=== PATIENT | female | born 1975 | race Caucasian/White ===

== ENCOUNTER 2020-04-19 16:59 | Emergency (ER) | payer OTHER, SELFPAY ==
--- NOTE | 2020-04-19 17:05 | ED.URI ---
HPI - URI/Sore Throat General Chief Complaint: Upper Respiratory Infection Stated Complaint: cough/sinus congestion/shortness of breath Time Seen by Provider: 04/19/20 17:13 Source: patient and RN notes reviewed Mode of arrival: ambulatory Limitations: no limitations History of Present Illness HPI Narrative: 45 year old female who presents to express care with complaints of cough with post nasal drainage some dyspnea with exertion for the past 5 days. Patient states she had nasal drainage which started on 04/08/2020 and on 04/11/2020 had negative COVID test was feeling better last week till stated complaints which started the past 5 days. Patient states that cough is at times barky and notices it a lot when she lays down, denies any sore throat, fevers, ear pain or acute dyspnea episodes. Patient has history of asthma and is out of her Duo Nebs. Patient states that she is presently finishing a RX of Keflex for an UTI with 1 1/2 days left on RX. MD elicited complaint: cough and nasal congestion Pertinent past history: asthma, seasonal allergies and immunosuppression (on Skyrizi for psoriasis) Onset (ago): day(s) (5) Consistency: constant Description of mucous: yellow Able to tolerate fluids by mouth: Yes Exacerbating factors: exertion and deep breaths Relieving factors: rest and other (inhalers ) Context: other (nasal drainage , asthma, seasonal allergies) Associated symptoms: rhinorrhea, nasal congestion, cough and shortness of breath Treatments prior to arrival: antibiotics and other (inhalers) Related Data Home Medications Medication Instructions Recorded Confirmed albuterol sulfate [ProAir HFA] 2 puff INHALATION QID PRN 07/07/19 04/19/20 ascorbic acid (vitamin C) 1 g PO DAILY 07/07/19 04/19/20 budesonide-formoterol [Symbicort] 2 puff INHALATION Q12H 07/07/19 04/19/20 ipratropium-albuterol 3 ml INHALATION Q4H PRN 07/07/19 04/19/20 montelukast [Singulair] 10 mg PO DAILY 07/07/19 04/19/20 omeprazole 20 mg PO DAILY 07/07/19 04/19/20 cephalexin 500 mg PO Q12H 04/19/20 04/19/20 cetirizine [Zyrtec] 10 mg PO DAILY 04/19/20 04/19/20 hydrocodone-acetaminophen 1 tablet PO Q4H PRN 04/19/20 04/19/20 risankizumab-rzaa [Skyrizi] 0 mg SUBCUT PER PKG DIR 04/19/20 04/19/20 ropinirole 0.5 mg PO BID 04/19/20 04/19/20 Allergies Allergy/AdvReac Type Severity Reaction Status Date / Time No Known Allergies Allergy Verified 04/19/20 17:19 Review of Systems Review of Systems: Narrative: CONSTITUTIONAL: Denies fever, chills, or sweats. EYES: Denies visual changes, redness, or discharge. ENT: positive rhinorrhea, congestion, no sore throat, or otalgia. CARDIOVASCULAR: Denies chest pain, palpitations, or edema. RESPIRATORY: positive for cough or dyspnea with exertion. GASTROINTESTINAL: Denies abdominal pain, nausea, vomiting, or diarrhea. GENITOURINARY: Denies dysuria or hematuria. SKIN: Denies rash or itching. MUSCULOSKELETAL: Denies back pain, joint pain, or myalgia. NEUROLOGIC: Denies headache, numbness, or weakness. PSYCHIATRIC: Denies anxiety or depression. 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 There is no relevant family history pertinent to the presenting complaint Exam N
[2020-04-19 17:06] VITALS: BP 135/87; PULSE 90; RESP 16; TEMP 36.7; O2SAT 98
== END 2020-04-19 17:42 | disposition home or self-care (01) ==
PROVIDERS: Emergency Provider Registered Nurse
DX: J45.40 Moderate persistent asthma, uncomplicated (principal); Z87.891 Personal history of nicotine dependence; K21.9 Gastro-esophageal reflux disease without esophagitis
CPT/HCPCS: 99213; G0463

== ENCOUNTER 2021-08-07 11:19 | Emergency (ER) | payer OTHER, SELFPAY ==
--- NOTE | ~2021-08-07 | XR_ITS ---
EXAMINATION: XR chest 2V EXAM DATE: 08/07/2021 11:44 INDICATION: Post Cough. (+)PCR 07/31/2021. . TECHNIQUE: Frontal and lateral projections of the chest obtained and reviewed. There is no prior pino dy for comparison. FINDINGS: The lungs are clear. There are no pleural effusions. The cardiomediastinal silhouette is within normal limits. There is no pneumothorax suspected. The bones and soft tissues are unremarkab le. IMPRESSION: No acute cardiopulmonary findings. Reviewed, dictated and finalized at location B. TEACHER
[2021-08-07 11:28] VITALS: BP 148/67; PULSE 114; RESP 16; TEMP 36.9; O2SAT 99
--- NOTE | 2021-08-07 11:35 | ED.URI ---
HPI - URI/Sore Throat General Chief Complaint: Upper Respiratory Infection Stated Complaint: chest congestion sore throat Time Seen by Provider: 08/07/21 11:35 Source: patient and family History of Present Illness HPI Narrative: positive covid test 07/31/21. Patient presents with continued cough and congestion. 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 non productive cough. Patient has ran out of her inhalers. No shortness of breath and no chest pain. MD elicited complaint: cough and nasal congestion Related Data Home Medications Medication Instructions Recorded Confirmed albuterol sulfate [ProAir HFA] 2 puff INHALATION QID PRN 07/07/19 08/07/21 ascorbic acid (vitamin C) 1 g PO DAILY 07/07/19 08/07/21 budesonide-formoterol [Symbicort] 2 puff INHALATION Q12H 07/07/19 08/07/21 ipratropium-albuterol 3 ml INHALATION Q4H PRN 07/07/19 08/07/21 montelukast [Singulair] 10 mg PO DAILY 07/07/19 08/07/21 omeprazole 20 mg PO DAILY 07/07/19 08/07/21 ropinirole 0.5 mg PO BID 04/19/20 04/19/20 Allergies Allergy/AdvReac Type Severity Reaction Status Date / Time No Known Allergies Allergy Verified 04/19/20 17:19 Review of Systems Review of Systems: All systems reviewed & are unremarkable except as noted in HPI and below Constitutional: Constitutional: Reports as per HPI Eyes: Eyes: Reports as per HPI Cardiovascular: Cardiovascular: Reports as per HPI Respiratory: Respiratory: Reports as per HPI Gastrointestinal: Gastrointestinal: Reports as per HPI Comments: CONSTITUTIONAL: Denies fever, chills, or sweats. EYES: Denies visual changes, redness, or discharge. ENT: Denies rhinorrhea, congestion, sore throat, or otalgia. CARDIOVASCULAR: Denies chest pain, palpitations, or edema. RESPIRATORY: Denies cough or dyspnea. GASTROINTESTINAL: Denies abdominal pain, nausea, vomiting, or diarrhea. GENITOURINARY: Denies dysuria or hematuria. SKIN: Denies rash or itching. MUSCULOSKELETAL: Denies back pain, joint pain, or myalgia. NEUROLOGIC: Denies headache, numbness, or weakness. PSYCHIATRIC: Denies anxiety or depression. 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 There is no relevant family history pertinent to the presenting complaint Exam Const: Other: GENERAL: Well-appearing, well-nourished, and in no acute distress. HEAD: Normocephalic, atraumatic. EYES: PERRLA and EOMI. ENT: Nares clear, no rhinorrhea or epistaxis. Mucous membranes moist. NECK: Supple. CHEST:few crackles bases respiratory distress. HEART: Regular rate and rhythm. No murmur heard. Normal peripheral pulses. ABDOMEN: Soft, nontender, nondistended, normal active bowel sounds. EXTREMITIES: Normal range of motion. No edema. SKIN: Warm, dry, no rash. NEURO: No focal deficits. Alert and oriented x3. Shivam Coma Scale Eye Opening: Spontaneous 4 Shivam Coma Scale Motor: Obeys Commands 6 Shivam Coma Scale Verbal: Oriented 5 Brooks Coma Scale Total 15 Course Course Level of Care: Express Care Visit Vital Signs Vital signs: Vital Signs Temperature 36.9 C 08/07/21 11:28 Pulse Rate 114 H 08/07/21 11:28 Respiratory Rate 16 08/07/21 11:28 Blood Pressure 148/67 H 08/07/21 11:28 Pulse Oximetry 99 08/07/21 11:28 Temperature 36.9
[2021-08-07 11:40] VITALS: BP 148/67; PULSE 114; RESP 16; TEMP 36.9; O2SAT 99
== END 2021-08-07 12:08 | disposition home or self-care (01) ==
PROVIDERS: Emergency Provider Nurse Practitioner Family
DX: U07.1 COVID-19 (principal); Z87.891 Personal history of nicotine dependence; J45.909 Unspecified asthma, uncomplicated; K21.9 Gastro-esophageal reflux disease without esophagitis
CPT/HCPCS: 71046; 99213; G0463

== ENCOUNTER 2023-02-14 15:15 | Emergency (ER) | payer OTHER, SELFPAY ==
[2023-02-14 15:26] VITALS: BP 123/69; PULSE 107; RESP 20; TEMP 36.5; O2SAT 99
--- NOTE | 2023-02-14 15:34 | ED.URI ---
HPI - URI/Sore Throat General Chief Complaint: Upper Respiratory Infection Stated Complaint: Cough; body ache Time Seen by Provider: 02/14/23 15:22 History of Present Illness HPI Narrative: Patient presents with a productive cough for the past 5 days. Patient denies any shortness of breath no chest pain patient states she does report a history of asthma and is using her inhalers as Related Data Home Medications Medication Instructions Recorded Confirmed ascorbic acid (vitamin C) 1,000 mg 1 g PO DAILY 07/07/19 08/07/21 tablet budesonide-formoterol HFA 160 2 puff inhalation Q12H 07/07/19 08/07/21 mcg-4.5 mcg/actuation aerosol inhaler (Symbicort) ipratropium 0.5 mg-albuterol 3 mg 3 ml inhalation Q4H PRN Dyspnea 07/07/19 08/07/21 (2.5 mg base)/3 mL nebulization soln montelukast 10 mg tablet 10 mg PO DAILY 07/07/19 08/07/21 (Singulair) omeprazole 20 mg capsule,delayed 20 mg PO DAILY 07/07/19 08/07/21 release ropinirole 0.5 mg tablet 0.5 mg PO BID 04/19/20 04/19/20 Allergies Allergy/AdvReac Type Severity Reaction Status Date / Time No Known Allergies Allergy Verified 04/19/20 17:19 Review of Systems Review of Systems: CONSTITUTIONAL: Denies fever, chills, or sweats. EYES: Denies visual changes, redness, or discharge. ENT: Denies rhinorrhea, congestion, sore throat, or otalgia. CARDIOVASCULAR: Denies chest pain, palpitations, or edema. RESPIRATORY: Denies cough or dyspnea. GASTROINTESTINAL: Denies abdominal pain, nausea, vomiting, or diarrhea. GENITOURINARY: Denies dysuria or hematuria. SKIN: Denies rash or itching. MUSCULOSKELETAL: Denies back pain, joint pain, or myalgia. NEUROLOGIC: Denies headache, numbness, or weakness. PSYCHIATRIC: Denies anxiety or depression. 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 There is no relevant family history pertinent to the presenting complaint Exam Narrative: The patient is a well-developed, well-nourished in no acute distress. SKIN: Skin is warm and dry without erythema, swelling or exudate. There is good turgor. No tenting. HEAD: Atraumatic. Normocephalic. No temporal or scalp tenderness. EYES: Moist and bright. Sclera and conjunctivae normal. No discharge. PERRLA. Extraocular motions intact. Gross visual acuity intact. EARS: Pinna is normal shape and contour. Clear external auditory canals. TM pearly hennessy with good cone of light, no erythema or suppuration. Bilateral cerumen noted no gross hearing deficit. NOSE: pink, moist mucosa with good air movement. Clear rhinorrhea without nasal flaring. Septum midline. Mouth: moist mucous membranes. THROAT; mild erythema noted to posterior oropharynx with moderate postnasal drainage. Without exudate or ulceration.. Uvula midline. Normal movement of soft palate. NECK: Supple and nontender with full range of motion without discomfort. No meningeal signs. LUNGS: Equal and bilateral breath sounds without wheezes, rales or rhonchi. Deep congested cough productive at times CHEST: The chest wall is without retractions or use of accessory muscles. HEART: Has a regular rate and rhythm without murmur, gallops, click or rub. ABDOMEN: Soft, nontender with positive active bowel sounds. No rebound tenderness. EXTREMITIES:
== END 2023-02-14 15:46 | disposition home or self-care (01) ==
PROVIDERS: Emergency Provider Nurse Practitioner Family
DX: J45.909 Unspecified asthma, uncomplicated (principal); Z87.891 Personal history of nicotine dependence; K21.9 Gastro-esophageal reflux disease without esophagitis; L40.9 Psoriasis, unspecified
CPT/HCPCS: 99213; G0463

== ENCOUNTER 2023-09-07 10:40 | Emergency (ER) | payer OTHER, SELFPAY ==
[2023-09-07 10:44] VITALS: BP 121/85; PULSE 84; RESP 20; TEMP 36.6; O2SAT 100
--- NOTE | 2023-09-07 11:19 | ED.EAR ---
HPI - Ear Problem General Chief complaint: Ear Stated complaint: ears Time Seen by Provider: 09/07/23 11:20 Source: patient, RN notes reviewed and old records reviewed Mode of arrival: ambulatory Limitations: no limitations History of Present Illness HPI Narrative: 48-year-old female who presents to [facility] with right ear for 4 days duration with some pain radiating down side of neck. Patient reports that ear pain is sharp,shooting and has worsened.Patient reports no known fevers, chills or sweats, states no sore throat, or no body aches. Patient reports that she has been taking Tylenol for her ear pain without relief. MD Complaint: ear pain Location: right ear Duration: constant Severity: moderate Discharge from ear: Reports no Treatment prior to arrival: other (Tylenol takes daily Zyrtec and Singulair) Related Data Home Medications Medication Instructions Recorded Confirmed apremilast 10 mg (4)-20 mg (4)-30 See Rx Instructions .Route .COMPLEX 09/07/23 09/07/23 mg (47) tablets in a dose pack (Otezla Starter) desoximetasone 0.25 % topical See Rx Instructions .Route .COMPLEX 09/07/23 09/07/23 ointment dextroamphetamine-amphetamine ER 15 mg PO DAILY 09/07/23 09/07/23 15 mg 24hr capsule,extend release fluocinonide 0.05 % topical See Rx Instructions .Route .COMPLEX 09/07/23 09/07/23 solution montelukast 10 mg tablet 10 mg PO DAILY 09/07/23 09/07/23 omeprazole 20 mg capsule,delayed 20 mg PO DAILY 09/07/23 09/07/23 release terbinafine HCl 250 mg tablet See Rx Instructions .Route .COMPLEX 09/07/23 09/07/23 timolol maleate 0.5 % eye drops See Rx Instructions .Route .COMPLEX 09/07/23 09/07/23 Allergies Allergy/AdvReac Type Severity Reaction Status Date / Time No Known Allergies Allergy Verified 09/07/23 10:53 Review of Systems Review of Systems: CONSTITUTIONAL: Denies malaise, chills, sweats, or fever. EYES: Denies visual changes, redness, or discharge. ENT: Reports rhinorrhea, congestion,no sinus pain, positive for right ear otalgia and no sore throat. CARDIOVASCULAR: Denies chest pain, palpitations, or edema. RESPIRATORY: Reports no cough.? Denies dyspnea. GASTROINTESTINAL: Denies abdominal pain, nausea, vomiting, diarrhea SKIN: Denies rash or itching. MUSCULOSKELETAL: Denies myalgia. NEUROLOGIC: Denies headache. 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 There is no relevant family history pertinent to the presenting complaint Exam Narrative: GENERAL: Well-appearing, well-nourished, and in no acute distress. HEAD: Normocephalic EYES: PERRLA, conjunctivae clear ENT: Nares clear, turbinates edematous and erythematous, clear discharge. Mucous membranes moist. Right TM red Left TM pearly an with dull light reflex ; no tragal tenderness. Oropharynx erythematous without lesions. Tonsils not enlarged and without exudate, no drooling, no hoarseness, no trismus, uvula midline.post nasal drainage NECK: Supple. No lymphadenopathy CHEST: Clear to auscultation, breath sounds equal. No wheezing, rhonchi, rales, or stridor. No respiratory distr
== END 2023-09-07 11:40 | disposition home or self-care (01) ==
PROVIDERS: Emergency Provider Registered Nurse
DX: H66.91 Otitis media, unspecified, right ear (principal); F90.9 Attention-deficit hyperactivity disorder, unspecified type; J45.909 Unspecified asthma, uncomplicated; K21.9 Gastro-esophageal reflux disease without esophagitis; L40.9 Psoriasis, unspecified; Z98.84 Bariatric surgery status
CPT/HCPCS: 99213; G0463

== ENCOUNTER 2025-05-21 16:00 | Emergency (ER) | payer OTHER, SELFPAY ==
--- NOTE | 2025-05-21 16:05 | ED.URI ---
HPI - URI/Sore Throat General Chief Complaint: Upper Respiratory Infection Stated Complaint: sinus issues Time Seen by Provider: 05/21/25 16:35 Source: patient, RN notes reviewed and old records reviewed Mode of arrival: ambulatory Limitations: no limitations History of Present Illness HPI Narrative: 50-year-old female presents to the [facility] with 1 week history of a productive cough. Has tried [id number] cold and flu medication. History of asthma. States that she has a history of bronchitis which it feels like. Denies any fevers, chest pain Related Data Home Medications ?Medication ?Instructions ?Recorded ?Confirmed ?Last Taken ?Type apremilast 10 mg (4)-20 mg (4)-30 See Rx Instructions .Route .COMPLEX 09/07/23 09/07/23 Unknown History mg (47) tablets in a dose pack (Otezla Starter) desoximetasone 0.25 % topical See Rx Instructions .Route .COMPLEX 09/07/23 09/07/23 Unknown History ointment dextroamphetamine-amphetamine ER 15 mg PO DAILY 09/07/23 09/07/23 Unknown History 15 mg 24hr capsule,extend release fluocinonide 0.05 % topical See Rx Instructions .Route .COMPLEX 09/07/23 09/07/23 Unknown History solution montelukast 10 mg tablet 10 mg PO DAILY 09/07/23 09/07/23 Unknown History omeprazole 20 mg capsule,delayed 20 mg PO DAILY 09/07/23 09/07/23 Unknown History release terbinafine HCl 250 mg tablet See Rx Instructions .Route .COMPLEX 09/07/23 09/07/23 Unknown History timolol maleate 0.5 % eye drops See Rx Instructions .Route .COMPLEX 09/07/23 09/07/23 Unknown History Allergies Allergy/AdvReac Type Severity Reaction Status Date / Time No Known Allergies Allergy Verified 05/21/25 16:19 Review of Systems Review of Systems: All systems reviewed & are unremarkable except as noted in HPI and below Constitutional: Constitutional: Reports no additional constitutional complaints ENT: Reports system reviewed and no additional complaints, except as documented Cardiovascular: Cardiovascular: Reports no additional cardiovascular complaints, Denies chest pain and Denies dyspnea Respiratory: Respiratory: Reports as per HPI, Denies chest congestion, Reports cough and Denies dyspnea Musculoskeletal: Musculoskeletal: Reports no additional musculoskeletal complaints Integumentary/Breasts: Skin/Breast: Reports system reviewed and no additional complaints, except as [facility]u [facility] Past Medical History Medical History (Updated 05/21/25 @ 16:46 by Celsa Hunter APRN) ADHD (attention deficit hyperactivity disorder) Seasonal allergies Psoriasis 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 There is no relevant family history pertinent to the patient complaint. Exam Const: General: cooperative, healthy appearing, comfortable, no acute distress, well developed, alert and well nourished Nutritional Appearance: well nourished Orientation/consciousness: patient oriented x3 Limitations: no limitations HENMT: Head: normal to inspection Ears: hearing grossly normal bilaterally, external ears normal, TM's normal bilaterally, EAC's normal, mastoids normal and no periauricular adenopathy Mouth: Yes Normal oral and palatal mucosa present, Yes lip normal, Yes tongue normal and Yes moist mucous membranes Throat: posterior oropharynx normal, uvula midline and no uvular edema Eyes: General: appearance normal, both eyes and all related structures Alignment and Position: alignment normal Neck: Neck: normal visual inspection, full ROM, no lymphadenopathy and no meningeal signs Chest: Chest palpation & inspection: normal inspection of the chest Resp: Effort & Inspection: normal respiratory effort and able to speak in complete sentences Auscultation: clear to auscultation bilaterally, no crackles, no rales, no rhonchi and no wheezes Cardio: Rate: regular rate Skin: General skin exam: normal color and no rashes or lesions noted Neuro: General: patient oriented x3, gait normal, moves all extremities and no meningeal signs Cognition (Neuro): normal cognition Speech: normal speech Gait exam (Neuro): Normal gait present Extrem: General: normal to inspection, full ROM, capillary refill normal and normal gait Psych: Appearance: grossly normal and well kempt Mental Status: mental status grossly normal Speech and movement: Normal speech and movement present and Clear speech present Affect: normal affect Attitude: cooperative Course Course Level of Care: Express Care Visit Vital Signs Vital signs: Vital Signs Temperature 98.3 F 05/21/25 16:06 Pulse Rate 96 05/21/25 16:06 Respiratory Rate 20 05/21/25 16:06 Blood Pressure 116/90 05/21/25 16:06 Pulse Oximetry 98 05/21/25 16:06 Oxygen Delivery Room Air 05/21/25 16:06 Temperature 98.3 F 05/21/25 16:06 Pulse Rate 96 05/21/25 16:06 Respiratory Rate 20 05/21/25 16:06 Blood Pressure 116/90 05/21/25 16:06 Pulse Oximetry 98 05/21/25 16:06 Oxygen Delivery Room Air 05/21/25 16:06 Reviewed MDM - URI/Sore Throat MDM Narrative Medical decision making narrative: patient sitting in exam room. Patient is nontoxic, vitals stable. Patient reports 1 week history of cough, history of asthma and bronchitis. States that she has not used her albuterol since yesterday. Denies any fevers. States that she does have enough nebulizer at home. No testing needed, will cover with steroids. Discharge instructions reviewed with patient, as well as provided in writing per nursing staff. The instructions also include specific and strict return/GO TO THE ER as well as f/u information. All questions have been answered, and the patient deny any further questions with discharge and discharge plan. Some parts of this dictation were generated by voice recognition software and may contain typographical and/or grammatical inaccuracies. Differential Diagnosis Differential diagnosis: Likely upper respiratory infection, otitis media, sinusitis, viral infection, bronchitis, influenza and pharyngitis Critical Care Time Critical Care Time Critical Care Time: No Discharge Plan Discharge Clinical Impression: Bronchitis, History of asthma Patient Disposition: Home Condition: Stable Instructions: Antibiotic Form, Acute Bronchitis (ED) Additional Instructions: please use your nebulizer machine 3 times a day for the next 3 days then as needed take Mucinex twice daily per package instructions take steroids as prescribed follow-up with primary care provider for new or worsening symptoms go directly to the emergency room Patient Language: Greenlandic Prescriptions: New prednisone 20 mg tablet See Rx Instructions .Route .COMPLEX Qty: 18 0RF Rx Instructions: Take 60 mg daily for 3 days, 40 mg daily for 3 days, 20 mg daily for 3 days No Action terbinafine HCl 250 mg tablet See Rx Instructions .ROUTE .COMPLEX Rx Instructions: as prescribed desoximetasone 0.25 % ointment See Rx Instructions .ROUTE .COMPLEX Rx Instructions: as prescribed omeprazole 20 mg capsule,delayed release(DR/EC) 20 mg PO DAILY montelukast 10 mg tablet 10 mg PO DAILY fluocinonide 0.05 % solution See Rx Instructions .ROUTE .COMPLEX Rx Instructions: as directed timolol maleate 0.5 % drops See Rx Instructions .ROUTE .COMPLEX Rx Instructions: as prescribed dextroamphetamine-amphetamine 15 mg capsule,extended release 24hr 15 mg PO DAILY Otezla Starter 10 mg (4)-20 mg (4)-30 mg (47) tablets,dose pack See Rx Instructions .ROUTE .COMPLEX Rx Instructions: as prescribed fluconazole 150 mg tablet 150 mg PO ONCE Qty: 2 0RF Rx Instructions: as a single dose may repeat in 72 hours X1 Follow-up/Referrals: UNKNOWN,DOCTOR [Primary Care Provider] Stand Alone Forms: Work/School Release IP Time of Disposition: 16:46
[2025-05-21 16:06] VITALS: BP 116/90; PULSE 96; RESP 20; TEMP 36.8; O2SAT 98
--- OUTSIDE RECORDS SUMMARY | 2025-05-21 16:06 | XMS_ITS | Encounter Summary ---
Author Organization [facility] Address [address] [place] [address] Care Team Providers Care Household Coordinator Name Role Phone Dilshad Muñoz MD Primary Care Provider [phone] Dilshad Muñoz MD Unavailable [phone] Dea Scott MD Primary Care Provider Reason for Visit * Reason Onset Date Comments MEDICATION REFILL 04/10/2022 Encounter Details Date Type Department Care Team (Late st Contact Info) Description 04/10/2022 Refill [facility] Family and Community Medicine [address] [place] [address], [place] [phone] Dilshad Muñoz MD [address] [place] [address] [place] [address] MEDICATION REFILL Social History Tobacco Use Types Packs/Day Years Used Date Smoking Tobacco: Former Cigarettes Smokeless Tobacco: Never Comments:QUIT 4yrs ago. Alcohol Use Standard Drinks/Week Comments Yes 1.7 (1 standard drink = 0.6 oz p ure alcohol) occassionally PHQ-2 Answer Date Recorded PHQ2 TOTAL SCORE 6 01/07/2021 Comments No Sex and Gender Information Value Date Recorded Sex Assigned at Female 09/16/2021 9:54 PM DENTAL LABORATORY MANAGER Legal Sex Female 5:10 PM CDT Gender Identity Female 09/16/2021 9:54 PM DENTAL LABORATORY MANAGER Sexual Orientation Straight 09/16/2021 9: 54 PM DENTAL LABORATORY MANAGER documented as of this encounter Functional Status * Is person deaf or have serious hearing difficulty? Answer Date of Assessment Author No 11/11/2020 1:42 PM Sharifa Maldonado RN * Is person blind or have serious difficulty seeing? Answer Date of Assessment Author No 11/11/2020 1:42 PM Sharifa Maldonado RN * Does person have serious difficulty walking/climbing stairs? Answer Date of Assessment Author No 11/11/2020 1:42 PM Sharifa Maldonado RN * Does person have difficulty dressing/bathing? Answer Date of Assessment Author No 11/11/2020 1:42 PM Sharifa Maldonado RN * Does person have difficulty doing errands alone? Answer Date of Assessment Author No 11/11/2020 1:42 PM Sharifa Maldonado RN documented as of this encounter Mental Status * Does person have difficulty concentrating/remembering/making decisions? Answer Entry Date Author No 11/11/2020 1:42 PM Sharifa Maldonado RN documented in this encounter Plan of Treatment Upcoming Encounters Date Type Department Care Team (Late st Contact Info) Description 06/01/2025 11:00 AM DENTAL LABORATORY MANAGER [facility] [address] [place] [address], [place] [address] Dilshad Muñoz MD [address] [place] [address] [place] [address] 06/01/2025 2:30 PM DENTAL LABORATORY MANAGER Appointment [facility] [address] [place] [address] Jefe Hernandez MD [address] [place] [address] LEVEL DOOR 3 [place] [address] 06/01/2025 3:45 PM DENTAL LABORATORY MANAGER Office Visit [facility] - ENT [address] [facility], [place] [address] Jefe Hernandez MD [address] [place] [address] DOOR 3 [place] [address] documented as of this encounter Visit Diagnoses Not on filedocumented in this encounter Care Teams Household Coordinator Relationship Specialty Start Date End Date Dilshad Muñoz MD PCP - General Family Medicine 04/23/20 05/07/25 Dilshad Muñoz MD [address] [place] [address] [address] [place] [address] PCP - Attributed-[facility] 11/16/22 Dea Scott MD [address] [place] [address] [address] [place] [address] PCP - General Family Medicine 05/08/25 documented as of this encounter
--- OUTSIDE RECORDS SUMMARY | 2025-05-21 16:06 | XMS_ITS | Encounter Summary ---
Author Organization [facility] Address [address] [place] [address] Care Team Providers Care Sugar Drier Name Role Phone Dilshad Muñoz MD Primary Care Provider [phone] Dilshad Muñoz MD Unavailable [phone] Dea Scott MD Primary Care Provider [phone] Reason for Visit * Reason Onset Date Comments MEDICATION REFILL 08/11/2020 Encounter Details Date Type Department Care Team (Late st Contact Info) Description 08/11/2020 Refill [facility] Family and Community Medicine [address] [place] [address] MEDICATION REFILL Social History Tobacco Use Types Packs/Day Years Used Date Smoking Tobacco: Former Cigarettes Smokeless Tobacco: Never Comments:QUIT 4yrs ago. Alcohol Use Standard Drinks/Week Comments Yes 1.7 (1 standard drink = 0.6 oz p ure alcohol) occassionally Comments No Sex and Gender Information Value Date Recorded Sex Assigned at Female 09/16/2021 9:54 PM COMMERCIAL RELATIONSHIP MANAGER Legal Sex Female 5:10 PM CDT Gender Identity Female 09/16/2021 9:54 PM COMMERCIAL RELATIONSHIP MANAGER Sexual Orientation Straight 09/16/2021 9: 54 PM COMMERCIAL RELATIONSHIP MANAGER documented as of this encounter Functional Status * Is person deaf or have serious hearing difficulty? Answer Date of Assessment Author No 09/21/2014 8:23 AM COMMERCIAL RELATIONSHIP MANAGER Ashtyn Steele RN * Is person blind or have serious difficulty seeing? Answer Date of Assessment Author No 09/21/2014 8:23 AM Ashtyn Cardoza RN * Does person have serious difficulty walking/climbing stairs? Answer Date of Assessment Author No 09/21/2014 8:23 AM Ashtyn Cardoza RN * Does person have difficulty dressing/bathing? Answer Date of Assessment Author No 09/21/2014 8:23 AM Ashtyn Cardoza RN * Does person have difficulty doing errands alone? Answer Date of Assessment Author No 09/21/2014 8:23 AM Ashtyn Cardoza RN documented as of this encounter Mental Status * Does person have difficulty concentrating/remembering/making decisions? Answer Entry Date Author No 09/21/2014 8:23 AM Ashtyn Cardoza RN documented in this encounter Miscellaneous Notes * Telephone Encounter - Kathleen Ferro - 08/12/2020 10:27 AM CST Elda Agosto Requested Prescriptions Pending Prescriptions Disp Refills ??? hydroCHLOROthiazide (HYDRODIURIL) 50 MG tablet 90 tablet 4 Sig: Take 1 (one) tablet by mouth once daily No Known Allergies Last Refill:04/03/2019 Qty Dispense:90 # of Refills:4 Last OV:03/22/2020 Next OV:none ERCIAL RELATIONSHIP MANAGER documented in this encounter Plan of Treatment Upcoming Encounters Date Type Department Care Team (Late st Contact Info) Description 06/01/2025 11:00 AM COMMERCIAL RELATIONSHIP MANAGER Office Visit [facility] - Family Medicine [address] [place] [address], [facility] [place] [address] Dilshad Muñoz MD [address] [place] [address] [place] [phone] 06/01/2025 2:30 PM COMMERCIAL RELATIONSHIP MANAGER Appointment [facility] [address] [place] [address] Jefe Hernandez MD [address] [place] [address] LEVEL DOOR 3 [place] [address] 06/01/2025 3:45 PM COMMERCIAL RELATIONSHIP MANAGER Office Visit [facility], [place] [address] Jefe Hernandez MD [address] [place] [address] DOOR 3 [place] [address] documented as of this encounter Visit Diagnoses Diagnosis Bilateral lower extremity edema Edema documented in this encounter Care Teams Sugar Drier Relationship Specialty Start Date End Date Dilshad Muñoz MD PCP - General Family Medicine 04/23/20 05/07/25 Dilshad Muñoz MD [address] [place] [address] [address] [place] [address] PCP - Attributed-[facility] 11/16/22 Dea Scott MD [address] [place] [address] [address] [place] [address] PCP - General Family Medicine 05/08/25 documented as of this encounter
--- OUTSIDE RECORDS SUMMARY | 2025-05-21 16:06 | XMS_ITS | Encounter Summary ---
Author Organization [facility] Address [address] [facility] [place] [address] Care Team Providers Care Dry Cleaning Machine Operator Name Role Phone Landen Vickers PA-C Primary Care Provider Dilshad Muñoz MD Primary Care Provider [phone]- [phone] Dilshad Muñoz MD Unavailable [phone] Dea Scott MD Primary Care Provider [phone] Encounter Details Date Type Department Care Team (Late st Contact Info) Description 05/04/2019 Lab Requisition [facility] [address] [place] [phone] Social History Tobacco Use Types Packs/Day Years Used Date Smoking Tobacco: Former Cigarettes Smokeless Tobacco: Never Comments:QUIT 4yrs ago. Alcohol Use Standard Drinks/Week Comments Yes 1.7 (1 standard drink = 0.6 oz p ure alcohol) occassionally Comments No Sex and Gender Information Value Date Recorded Sex Assigned at Female 09/16/2021 9:54 PM PRODUCTION ASSEMBLY SUPERVISOR Legal Sex Female 5:10 PM CDT Gender Identity Female 09/16/2021 9:54 PM PRODUCTION ASSEMBLY SUPERVISOR Sexual Orientation Straight 09/16/2021 9: 54 PM PRODUCTION ASSEMBLY SUPERVISOR documented as of this encounter Functional Status * Is person deaf or have serious hearing difficulty? Answer Date of Assessment Author No 09/21/2014 8:23 AM PRODUCTION ASSEMBLY SUPERVISOR Ashtyn Steele RN * Is person blind [...] Ashtyn Cardoza RN documented in this encounter Plan of Treatment Upcoming Encounters Date Type Department Care Team (Late st Contact Info) Description 06/01/2025 11:00 AM PRODUCTION ASSEMBLY SUPERVISOR Office Visit [facility] - Family Medicine [address] [place] [address] Dilshad Muñoz MD [address] [place] [phone] 06/01/2025 2:30 PM PRODUCTION ASSEMBLY SUPERVISOR Appointment [facility] [address] [place] [address] Jefe Hernandez MD [address] [place] [address] DOOR 3 [place] [address] 06/01/2025 3:45 PM PRODUCTION ASSEMBLY SUPERVISOR Office Visit [facility] - ENT [address] [place] [address] Jefe Hernandez MD [address] [place] [address] DOOR 3 [place] [address] documented as of this encounter Procedures Procedure Name Priority Date/Time Associated Diagnosis Comments GLUCOSE VITALITY Routine 05/05/2019 10:2 2 AM CDT HEMOGLOBIN A1C Routine 05/05/2019 10:22 AM CDT LIPID PROFILE Routine 05/05/2019 10:22 AM CDT documented in this encounter Results * HEMOGLOBIN A1C (05/05/2019 10:22 AM CDT) Hemoglobin A1c 5.4 4.4 - 6.3 % 05/05/2019 12:57 PM CDT [facility] Estimated Average Glucose 108 mg/dL 05/05/2019 12:57 PM CDT [facility] Comment: HbA1c Interpretation: Treatment target values recommended by ADA and other clinical organizations should be used to evaluate metabolic control in patients. Treatment Target Values: Normal : < 5.7% Pre-diabetes: 5.7-6.4% Diabetes: Equal to or greater than 6.5% Reference: [place] [employer] Standards of Care in Diabetes -2014 In patients 70 years and older consider HbA1c target range of 7.0-7.5% Reference: Diabetes Mellitus in Older People: Position Statement on behalf of the International Association of Gerontology and Geriatrics (IAGG), the Diabetes Working Republican for Older People (EDWPOP), and the International Task Force of Experts in Diabetes. Aleksander Kurtz, et al. J [place] [employer] Directors Association. 2012 Test results diagnostic of diabetes should be repeated for confirmation. The Sebia Capillary 2 assay for the measurement of HbA1c is a National Glycohemoglobin Standardization Program (NGSP)certified method. Blood BLOOD SPECIMEN / Unknown Lab Venipuncture / Unknown 05/05/2019 10:22 AM CDT 05/05/2019 10:22 AM CDT us LAB - CHEMISTRY ORDERABLES Final Result [facility] [address] [place] [address] * (ABNORMAL) LIPID PROFILE (05/05/2019 10:22 AM CDT) Cholesterol Total 217(H) <200 mg/dL 05/05/2019 10:47 AM [facility] HDL 53 >40 mg/dL 05/05/2019 10:47 AM [facility] Comment: ATP III Classification of HDL Cholesterol: <40 mg/dL: Considered a major risk factor. >60 mg/dL: Considered a negative risk factor. LDL Calculated 123(H) <100 mg/dL 05/05/2019 10:47 AM [facility] Comment: ATP III Classification of LDL Cholesterol: <100 mg/dL: Optimal 100 - 129 mg/dL: Near Optimal/Above Optimal 130 - 159 mg/dL: Borderline High 160 - 189 mg/dL: High >190 mg/dL: Very High Triglycerides 203(H) <150 mg/dL 05/05/2019 10:47 AM [facility] Comment: ATP III Classification of Triglycerides: <150 mg/dL: Normal 150 - 199 mg/dL: Borderline High 200 - 400 mg/dL: High >500 mg/dL: Very High Blood BLOOD SPECIMEN / Unknown Lab Venipuncture / Unknown 05/05/2019 10:22 AM CDT 05/05/2019 10:22 AM CDT us LAB - CHEMISTRY ORDERABLES Final Result [address] [phone] * GLUCOSE VITALITY (05/05/2019 10:22 AM CDT) Glucose 92 70 - 115 mg/dL 05/05/2019 10:49 AM [facility] Blood BLOOD SPECIMEN / Unknown Lab Venipuncture / Unknown 05/05/2019 10:22 AM CDT 05/05/2019 10:22 AM CDT us LAB - CHEMISTRY ORDERABLES Final Result Performing Organization Address [facility]/ZIP Co de Phone Number [address] [phone] documented in this encounter Visit Diagnoses Not on filedocumented in this encounter Care Teams Dry Cleaning Machine Operator Relationship Specialty Start Date End Date Landen Vickers PA-C PCP - General Physician Barrer And Tacker 12/21/16 04/22/20 Dilshad Muñoz MD PCP - General Family Medicine 04/23/20 05/07/25 Dilshad Muñoz MD [address] [place] [phone] PCP - Attributed-[facility] 11/16/22 Dea Scott MD [address] [place] [phone] PCP - General Family Medicine 05/08/25 documented as of this encounter
--- OUTSIDE RECORDS SUMMARY | 2025-05-21 16:06 | XMS_ITS | Encounter Summary ---
Author Organization [facility] Address [address] [facility] [place] [address] Care Team Providers Care Machine Inker Name Role Phone Dilshad Muñoz MD Primary Care Provider [phone] Dilshad Muñoz MD Unavailable [phone] Dea Scott MD Primary Care Provider [phone] Reason for Visit * Reason Onset Date Comments MEDICATION REFILL 05/21/2022 Encounter Details Date Type Department Care Team (Late st Contact Info) Description 05/21/2022 Refill [facility] Family and Community Medicine [address] [place] [phone] Dilshad Muñoz MD [address] [place] [address] [place] [phone] MEDICATION REFILL Social History Tobacco Use Types Packs/Day Years Used Date Smoking Tobacco: Former Cigarettes Smokeless Tobacco: Never Comments:QUIT 4yrs ago. Alcohol Use Standard Drinks/Week Comments Yes 1.7 (1 standard drink = 0.6 oz p ure alcohol) occassionally PHQ-2 Answer Date Recorded PHQ2 TOTAL SCORE 6 01/07/2021 Comments No Sex and Gender Information Value Date Recorded Sex Assigned at Female 09/16/2021 9:54 PM TANK FURNACE OPERATOR Legal Sex Female 5:10 PM CDT Gender Identity Female 09/16/2021 9:54 PM TANK FURNACE OPERATOR Sexual Orientation Straight 09/16/2021 9: 54 PM TANK FURNACE OPERATOR documented as of this encounter Functional Status [...] st Contact Info) Description 06/01/2025 11:00 AM TANK FURNACE OPERATOR [facility] [address] [place] [address], [place] [address] Dilshad Muñoz MD [address] [place] [address] [place] [address] 06/01/2025 2:30 PM TANK FURNACE OPERATOR Appointment [facility] [address] [place] [address] Jefe Hernandez MD [address] [place] [address] LEVEL DOOR 3 DE[place] [address] 06/01/2025 3:45 PM TANK FURNACE OPERATOR Office Visit [facility] [address] [facility], [place] [address] Jefe Hernandez MD [address] [place] [address] DOOR 3 DEPT [place] [address] documented as of this encounter Visit Diagnoses Not on filedocumented in this encounter Care Teams Machine Inker Relationship Specialty Start Date End Date Dilshad Muñoz MD PCP - General Family Medicine 04/23/20 05/07/25 Dilshad uMñoz MD [address] [place] [address] 2[address] [place] [address] PCP - Attributed-[facility] 11/16/22 Dea Scott MD [address] [place] [address] [address] [place] [address] PCP - General Family Medicine 05/08/25 documented as of this encounter
--- OUTSIDE RECORDS SUMMARY | 2025-05-21 16:06 | XMS_ITS | Encounter Summary ---
Author Organization [facility] Address [address] [facility] [place] [address] Care Team Providers Care Programmer Engineering And Scientific Name Role Phone Dilshad Muñoz MD Primary Care Provider [phone] Dilshad Muñoz MD Unavailable [phone] Dea Scott MD Primary Care Provider [phone] Reason for Visit * Reason Comments Refill Request Encounter Details Date Type Department Care Team (Late st Contact Info) Description 05/05/2024 Refill [facility] D[facility] [address] [place] [address] [place] [phone] Flaquita Hernandez MD [address] [place] [address] [place] [address] Refill Request Social History Tobacco Use Types Packs/Day Years Used Date Smoking Tobacco: Former Cigarettes Smokeless Tobacco: Never Comments:QUIT 4yrs ago. Alcohol Use Standard Drinks/Week Comments Yes 1.7 (1 standard drink = 0.6 oz p ure alcohol) occassionally PHQ-2 Answer Date Recorded Patient Health Questionnaire-2 Score 0 03/28/2024 Comments No Sex and Gender Information Value Date Recorded Sex Assigned at Female 09/16/2021 9:54 PM SENIOR MARKET RESEARCH ANALYST Legal Sex Female 5:10 PM CDT Gender Identity Female 09/16/2021 9:54 PM SENIOR MARKET RESEARCH ANALYST Sexual Orientation Straight 09/16/2021 9: 54 PM SENIOR MARKET RESEARCH ANALYST documented as of this encounter Functional Status [...] Date Type Department Care Team (Late st [facility] Info) Description 06/01/2025 11:00 AM SENIOR MARKET RESEARCH ANALYST Office Visit [facility] - Family Medicine [address] [place] [phone] Dilshad Muñoz MD [address] [place] [address] [place] [address] 06/01/2025 2:30 PM SENIOR MARKET RESEARCH ANALYST Appointment [facility] [address] [place] [address] Jefe Hernandez MD [address] [place] [address] 3 DE[place] [address] 06/01/2025 3:45 PM SENIOR MARKET RESEARCH ANALYST Office Visit [facility] - ENT [address] [place] [phone] Jefe Hernandez MD [address] [place] LEVEL DOOR 3 [place] [address] documented as of this encounter Visit Diagnoses Not on filedocumented in this encounter Care Teams Programmer Engineering And Scientific Relationship Specialty Start Date End Date Dilshad Muñoz MD PCP - General Family Medicine 04/23/20 05/07/25 Dilshad Muñoz MD [address] [place] [phone] PCP - Attributed-[facility] 11/16/22 Dea Scott MD [address] [facility] 2[address] [place] [address] PCP - General Family Medicine 05/08/25 documented as of this encounter
--- OUTSIDE RECORDS SUMMARY | 2025-05-21 16:06 | XMS_ITS | Encounter Summary ---
Author Organization [facility] Address [address] [facility] [place] [address] Care Team Providers Care Client Support Analyst Name Role Phone Dilshad Muñoz MD Primary Care Provider [phone] Dilshad Muñoz MD Unavailable [phone] Dea Scott MD Primary Care Provider [phone] Reason for Visit * Reason Comments Refill Request Encounter Details Date Type Department Care Team (Late st Contact Info) Description 02/22/2024 Refill [facility] [address] [place] [address] [place] [phone] Flaquita Hernandez MD [address] [place] [address] [place] [address] Refill Request Social History Tobacco Use Types Packs/Day Years Used Date Smoking Tobacco: Former Cigarettes Smokeless Tobacco: Never Comments:QUIT 4yrs ago. Alcohol Use Standard Drinks/Week Comments Yes 1.7 (1 standard drink = 0.6 oz p ure alcohol) occassionally PHQ-2 Answer Date Recorded Patient Health Questionnaire-2 Score 0 12/06/2023 Comments No Sex and Gender Information Value Date Recorded Sex Assigned at Female 09/16/2021 9:54 PM MATERIALS SUPERVISOR Legal Sex Female 5:10 PM CDT Gender Identity Female 09/16/2021 9:54 PM MATERIALS SUPERVISOR Sexual Orientation Straight 09/16/2021 9: 54 PM MATERIALS SUPERVISOR documented as of this encounter Functional [...] Date Type Department Care Team (Late st [facility] Info) Description 06/01/2025 11:00 AM MATERIALS SUPERVISOR Office Visit [facility] - Family Medicine [address] [place] [phone] Dilshad Muñoz MD [address] [place] [address] [place] [address] 06/01/2025 2:30 PM MATERIALS SUPERVISOR Appointment [facility] [address] [place] [address] Jefe Hernandez MD [address] [place] [address] 3 [place] [address] 06/01/2025 3:45 PM MATERIALS SUPERVISOR Office Visit [facility] - ENT [address] [place] [phone] Jefe Hernandez MD [address] [place] LEVEL DOOR 3 [place] [address] documented as of this encounter Visit Diagnoses Not on filedocumented in this encounter Care Teams Client Support Analyst Relationship Specialty Start Date End Date Dilshad Muñoz MD PCP - General Family Medicine 04/23/20 05/07/25 Dilshad Muñoz MD [address] [place] [phone] PCP - Attributed-[facility] 11/16/22 Dea Scott MD [address] [facility] 2[address] [place] [address] PCP - General Family Medicine 05/08/25 documented as of this encounter
--- OUTSIDE RECORDS SUMMARY | 2025-05-21 16:06 | XMS_ITS | Encounter Summary ---
Author Organization [facility] Address [address] [place] [address] Care Team Providers Care Solar Energy Engineer Name Role Phone Landen Vickers PA-C Primary Care Provider Dilshad Muñoz MD Primary Care Provider [phone] Dilshad Muñoz MD Unavailable [phone] Dea Scott MD Primary Care Provider [phone] Encounter Details Date Type Department Care Team (Late st Contact Info) Description 06/01/2018 Lab Requisition [facility] [address] [place] [phone] Unlisted, Ordering Provider, Social History Tobacco Use Types Packs/Day Years Used Date Smoking Tobacco: Former Cigarettes Smokeless Tobacco: Never Comments:QUIT 4yrs ago. Alcohol Use Standard Drinks/Week Comments Yes 1.7 (1 standard drink = 0.6 oz p ure alcohol) occassionally Comments No Sex and Gender Information Value Date Recorded Sex Assigned at Female 09/16/2021 9:54 PM TECHNICAL SERVICE REPRESENTATIVE Legal Sex Female 5:10 PM CDT Gender Identity Female 09/16/2021 9:54 PM TECHNICAL SERVICE REPRESENTATIVE Sexual Orientation Straight 09/16/2021 9: 54 PM TECHNICAL SERVICE REPRESENTATIVE documented as of this encounter Functional Status * Is person deaf or have serious hearing difficulty? Answer Date of Assessment Author No 09/21/2014 8:23 AM TECHNICAL SERVICE REPRESENTATIVE Ashtyn Steele RN * Is person blind [...] st Contact Info) Description 06/01/2025 11:00 AM TECHNICAL SERVICE REPRESENTATIVE Office Visit [facility] - Family Medicine [address] [place] [address] Dilshad Muñoz MD [address] [place] [address] 06/01/2025 2:30 PM TECHNICAL SERVICE REPRESENTATIVE Appointment [facility] [address] [place] [address] Jefe Hernandez MD [address] [place] [address] DOOR [address] [place] [address] 06/01/2025 3:45 PM TECHNICAL SERVICE REPRESENTATIVE Office Visit [facility] - ENT [address] [place] [address] Jefe Hernandez MD [address] [place] [address] DOOR [address] [place] [address] documented as of this encounter Procedures Procedure Name Priority Date/Time Associated Diagnosis Comments GLUCOSE VITALITY Routine 06/03/2018 12:2 6 PM TECHNICAL SERVICE REPRESENTATIVE HEMOGLOBIN A1C Routine 06/03/2018 12:26 PM TECHNICAL SERVICE REPRESENTATIVE LIPID PROFILE Routine 06/03/2018 12:26 PM TECHNICAL SERVICE REPRESENTATIVE documented in this encounter Results * HEMOGLOBIN A1C (06/03/2018 12:26 PM TECHNICAL SERVICE REPRESENTATIVE) Hemoglobin A1c 5.3 4.4 - 6.3 % 06/03/2018 3:16 PM TECHNICAL SERVICE REPRESENTATIVE [facility] Estimated Average Glucose 105 mg/dL 06/03/2018 3:16 PM TECHNICAL SERVICE REPRESENTATIVE [facility] Comment: HbA1c Interpretation: Treatment target values recommended by ADA and other clinical organizations should be used to evaluate metabolic control in patients. Treatment Target Values: Normal : < 5.7% Pre-diabetes: 5.7-6.4% Diabetes: Equal to or greater than 6.5% Reference: [place] Diabetes Association Standards of Care in Diabetes -2014 In patients 70 years and older consider HbA1c target range of 7.0-7.5% Reference: Diabetes Mellitus in Older People: Position Statement on behalf of the International Association of Gerontology and Geriatrics (IAGG), the Diabetes Working Constitution Party for Older People (EDWPOP), and the International Task Force of Experts in Diabetes. Aleksander Kurtz, et al. J [place] Medical Directors Association. 2012 Test results diagnostic of diabetes should be repeated for confirmation. The Tosoh G8 assay for the measurement of HbA1c is a National Glycohemoglobin Standardization Program (NGSP)certified method. Results for patients with HbE disease should be interpreted with caution as this hemoglobinopathy has been shown to interfere with the Tosoh G8 assay. Blood BLOOD SPECIMEN / Unknown 06/03/2018 12:26 PM TECHNICAL SERVICE REPRESENTATIVE 06/03/2018 1:17 PM TECHNICAL SERVICE REPRESENTATIVE us Ordering Provider Unlisted MD LAB - CHEMISTRY OR DERABLES Final Result [facility] [address] [phone] * (ABNORMAL) LIPID PROFILE (06/03/2018 12:26 PM TECHNICAL SERVICE REPRESENTATIVE) Cholesterol Total 193 <200 mg/dL 06/03/2018 1:46 PM [facility] HDL 50 >40 mg/dL 06/03/2018 1:46 PM [facility] Comment: ATP III Classification of HDL Cholesterol: <40 mg/dL: Considered a major risk factor. >60 mg/dL: Considered a negative risk factor. LDL Calculated 107(H) <100 mg/dL 06/03/2018 1:46 PM [facility] Comment: ATP III Classification of LDL Cholesterol: <100 mg/dL: Optimal 100 - 129 mg/dL: Near Optimal/Above Optimal 130 - 159 mg/dL: Borderline High 160 - 189 mg/dL: High >190 mg/dL: Very High Triglycerides 180(H) <150 mg/dL 06/03/2018 1:46 PM [facility] Comment: ATP III Classification of Triglycerides: <150 mg/dL: Normal 150 - 199 mg/dL: Borderline High 200 - 400 mg/dL: High >500 mg/dL: Very High Blood BLOOD SPECIMEN / Unknown 06/03/2018 12:26 PM TECHNICAL SERVICE REPRESENTATIVE 06/03/2018 1:17 PM TECHNICAL SERVICE REPRESENTATIVE us Ordering Provider Unlisted MD LAB - CHEMISTRY OR DERABLES Final Result Performing Organization Address City/[facility]/ZIP Co de Phone Number [address] [phone] * GLUCOSE VITALITY (06/03/2018 12:26 PM TECHNICAL SERVICE REPRESENTATIVE) Glucose 91 70 - 115 mg/dL 06/03/2018 1:39 PM [facility] Blood BLOOD SPECIMEN / Unknown 06/03/2018 12:26 PM TECHNICAL SERVICE REPRESENTATIVE 06/03/2018 1:17 PM TECHNICAL SERVICE REPRESENTATIVE us Ordering Provider Unlisted MD LAB - CHEMISTRY OR DERABLES Final Result Performing Organization Address [facility] Co de Phone Number [address] [phone] documented in this encounter Visit Diagnoses Not on filedocumented in this encounter Care Teams Solar Energy Engineer Relationship Specialty Start Date End Date Landen Vickers PA-C PCP - General Physician Fish Bait Processing Supervisor 12/21/16 04/22/20 Dilshad Muñoz MD PCP - General Family Medicine 04/23/20 05/07/25 Dilshad Muñoz MD [address] [place] [address] PCP - Attributed-[facility] EHP STL 11/16/22 Dea Scott MD [address] [place] [address] PCP - General Family Medicine 05/08/25 documented as of this encounter
--- OUTSIDE RECORDS SUMMARY | 2025-05-21 16:06 | XMS_ITS | Encounter Summary ---
Author Organization [facility] Address [address] [place] [place] [address] Care Team Providers Care Receiving Worker Name Role Phone Dilshad Muñoz MD Primary Care Provider [phone] Dilshad Muñoz MD Unavailable [phone] Dea Scott MD Primary Care Provider [phone] Reason for Visit * Reason Onset Date Comments MEDICATION REFILL 03/28/2021 Encounter Details Date Type Department Care Team (Late st Contact Info) Description 03/28/2021 Refill [facility] Community Medicine [address] [place] [address], [facility], [place] [phone] Dilshad Muñoz MD [address] [place] [address] [place] [address] MEDICATION REFILL Social History Tobacco Use Types Packs/Day Years Used Date Smoking Tobacco: Former Cigarettes Smokeless Tobacco: Never Comments:QUIT 4yrs ago. Alcohol Use Standard Drinks/Week Comments Yes 1.7 (1 standard drink = 0.6 oz p ure alcohol) occassionally PHQ-2 Answer Date Recorded PHQ2 TOTAL SCORE 6 01/07/2021 Comments No Sex and Gender Information Value Date Recorded Sex Assigned at Female 09/16/2021 9:54 PM VP MOBILE PRODUCTS Legal Sex Female 5:10 PM CDT Gender Identity Female 09/16/2021 9:54 PM VP [employer] Sexual Orientation Straight 09/16/2021 9: 54 PM VP [employer] documented as of this encounter Functional Status [...] st Contact Info) Description 06/01/2025 11:00 AM VP MOBILE PRODUCTS [facility] [address] [place] [address], [place] [address] Dilshad Muñoz MD [address] [place] [address] [place] [address] 06/01/2025 2:30 PM VP MOBILE PRODUCTS Appointment [facility] [address] [place] [address] Jefe Hernandez MD [address] [place] [address] LEVEL DOOR 3 [place] [address] 06/01/2025 3:45 PM VP [employer]ODU[employer] Office Visit [facility] - ENT [address] [facility], [place] [address] Jefe Hernandez MD [address] [place] [address] DOOR 3 [place] [address] documented as of this encounter Visit Diagnoses Not on filedocumented in this encounter Care Teams Receiving Worker Relationship Specialty Start Date End Date Dilshad Muñoz MD PCP - General Family Medicine 04/23/20 05/07/25 Dilshad Muñoz MD [address] [place] [address] [address] [address] PCP - Attributed-[facility] E[facility] 11/16/22 Dea Scott MD [address] [place] [address] [address] [place] [address] PCP - General Family Medicine 05/08/25 documented as of this encounter
--- OUTSIDE RECORDS SUMMARY | 2025-05-21 16:06 | XMS_ITS | Encounter Summary ---
Author Organization [facility] Address [address] [facility] [place] [address] Care Team Providers Care Pediatrics Teacher Name Role Phone Dilshad Muñoz MD Primary Care Provider [phone] Dilshad Muñoz MD Unavailable [phone] Dea Scott MD Primary Care Provider [phone] Reason for Visit * Reason Onset Date Comments Medication Clarification 05/02/2024 Encounter Details Date Type Department Care Team (Late st Contact Info) Description 05/02/2024 Telephone [facility] - Centralized Scheduling [address] [place] [address] Flaquita Hernandez MD [facility] [place] [address] Medication Clarification Social History Tobacco Use Types Packs/Day Years Used Date Smoking Tobacco: Former Cigarettes Smokeless Tobacco: Never Comments:QUIT 4yrs ago. Alcohol Use Standard Drinks/Week Comments Yes 1.7 (1 standard drink = 0.6 oz p ure alcohol) occassionally PHQ-2 Answer Date Recorded Patient Health Questionnaire-2 Score 0 03/28/2024 Comments No Sex and Gender Information Value Date Recorded Sex Assigned at Female 09/16/2021 9:54 PM FELT MACHINE MECHANIC Legal Sex Female 5:10 PM CDT Gender Identity Female 09/16/2021 9:54 PM FELT MACHINE MECHANIC Sexual Orientation Straight 09/16/2021 9: 54 PM FELT MACHINE MECHANIC documented as of this encounter Functional Status * Is person deaf or have serious hearing difficulty? Answer Date of Assessment Author No 11/11/2020 1:42 PM CDSharifa Bain RN * Is person blind or have serious difficulty seeing? Answer Date of Assessment Author No 11/11/2020 1:42 PM Sharifa Maldonado RN * Does person have serious difficulty walking/climbing stairs? Answer Date of Assessment Author No 11/11/2020 1:42 PM Sahrifa Maldonado RN * Does person have difficulty [...] Sharifa Maldonado RN documented in this encounter Progress Notes * Lanie Sun - 06/06/2024 8:19 AM CST Medication Prior Authorization: Medication: Hyrimoz 40mg/0.4ml pen Status: Denied. Reason for denial: patient's condition is not improving Submitted via: Cover My Meds (Melo: [id number]) Insurance: [employer] (p: [phone]) Case/Reference number: ID: [id number] RX Card Billing Info: BIN: [id number] PCN: [id number] GROUP: [facility] ID: [id number] PA denial will be faxed to office and uploaded to media tab. Provider is changing treatment to Bimzelx. I will route message to M Specialty. Lanie Sun- Pharmacy Sewing Teacher (Dermatology) MACHINE MECHANIC documented in this encounter Miscellaneous Notes * Telephone Encounter - Lanie Sun - 06/20/2024 2:17 PM CST Faxed Bimzelx Bridge Application along with prior auth and appeal denial. Currently waiting on determination. Lanie Sun- Pharmacy Sewing Teacher (Dermatology) MACHINE MECHANIC * Telephone Encounter - Lanie Sun - 06/09/2024 12:25 PM CST Appeal denied for coverage of Bimzelx. Patient must try and fail all formulary options first. Enbrel Taltz Tremfnubia Medellina Leona Routed appeal determination to Dr. [place]. Lanie Sun- Pharmacy Sewing Teacher (Dermatology) MACHINE MECHANIC * Telephone Encounter - Lanie Sun - 06/06/2024 4:09 PM CST Medication Prior Authorization: Medication: Bimzelx 160mg/ml pen Status: Denied. Reason for denial: patient must try and fail ALL preferred options: Cimzia, Enbrel,Tremfya, Stelara, and Taltz Submitted via: [id number] Insurance: [facility] (p: [phone]) Case/Reference number: N/A RX Card Billing Info: BIN: [id number] PCN: [id number] GROUP: [facility] ID: [id number] PA denial notice uploaded to media tab. Routed denial details to Dr. Hernandez and Dr. [place]. Lanie Sun- Pharmacy Sewing Teacher (Dermatology) MACHINE MECHANIC * Telephone Encounter - Lanie Sun - 06/06/2024 8:21 AM CST PA submitted fornew start Bimzelx 160mg/ml pen for loading dose of 320mg every 4 weeks for 16 weeksand maintenance dose of 320mg every 8 weeks via Personal On Demandand currently waitingon decision. Melo: [id number] Provider:[id number] (David) Lanie Sun Lung Puller - Pharmacy Sewing Teacher MACHINE MECHANIC * Telephone Encounter - Lanie Sun - 05/30/2024 11:48 AM CST PA submitted forcontinuation of therapy Hyrimoz 40mg/0.4ml pen maintenance dose of 40mg every otherweek via Personal [employer] Dem[employer]and currently waiting on decision. Melo: [id number] Provider:[id number] (David) Lanie Sun Lung Puller - Pharmacy Sewing Teacher MACHINE MECHANIC * Telephone Encounter - Kezia Aggarwal - 05/02/2024 3:18 PM CDT Demi called regarding prescription for prednisone. Rep can be reached at [phone]. documented in this encounter Plan of Treatment Upcoming Encounters Date Type Department Care Team (Late st Contact Info) Description 06/01/2025 11:00 AM FELT MACHINE MECHANIC Office Visit [facility] - Family Medicine [address] [place] [address], [place] [address] Dilshad Muñoz MD [address] [place] [address] [place] [phone] 06/01/2025 2:30 PM FELT MACHINE MECHANIC Appointment [facility] [address] [place] [address] Jefe Hernandez MD [address] [place] [address] LEVEL DOOR 3 [place] [address] 06/01/2025 3:45 PM FELT MACHINE MECHANIC Office Visit [facility] - ENT [address] [facility], [place] [address] Jefe Hernandez MD [address] [facility] DOOR 3 [place] [address] documented as of this encounter Visit Diagnoses Not on filedocumented in this encounter Care Teams Pediatrics Teacher Relationship Specialty Start Date End Date Dilshad Muñoz MD PCP - General Family Medicine 04/23/20 05/07/25 Dilshad Muñoz MD [address] [facility] [address] [place] [address] PCP - Attributed-[facility] EHP [facility] 11/16/22 Dea Scott MD [address] [facility] 2[address] [place] [phone] PCP - General Family Medicine 05/08/25 documented as of this encounter
--- OUTSIDE RECORDS SUMMARY | 2025-05-21 16:06 | XMS_ITS | Encounter Summary ---
Author Organization [facility] Address [address] [facility] [place] [address] Care Team Providers Care Rehab Director Occupational Therapist Name Role Phone Dilshad Muñoz MD Primary Care Provider [phone] Dilshad Muñoz MD Unavailable [phone] Dea Scott MD Primary Care Provider [phone] Reason for Visit * Reason Comments Refill Request Encounter Details Date Type Department Care Team (Late st Contact Info) Description 04/19/2024 Refill [facility] - Dermatology [address] [place] [address] [place] [phone] Flaquita Hernandez MD [address] [place] [address] [place] [address] Refill Request Social History Tobacco Use Types [...] Sex Assigned at Female 09/16/2021 9:54 PM SUPERVISOR JEWELRY DEPARTMENT Legal Sex Female 5:10 PM CDT Gender Identity Female 09/16/2021 9:54 PM SUPERVISOR JEWELRY DEPARTMENT Sexual Orientation Straight 09/16/2021 9: 54 PM SUPERVISOR JEWELRY DEPARTMENT documented as of this encounter Functional Status [...] Entry Date Author No 11/11/2020 1:42 PM Shairfa Maldonado RN documented in this encounter Plan of Treatment Upcoming Encounters Date Type Department Care Team (Late st [facility] Info) Description 06/01/2025 11:00 AM SUPERVISOR JEWELRY DEPARTMENT Office Visit [facility] - Family Medicine [address] [place] [address] Dilshad Muñoz MD [address] [place] [address] [place] [address] 06/01/2025 2:30 PM SUPERVISOR JEWELRY DEPARTMENT Appointment [facility] [address] [place] [address] Jefe Hernandez MD [address] [place] [address] 3 [place] [address] 06/01/2025 3:45 PM SUPERVISOR JEWELRY DEPARTMENT Office Visit [facility] - ENT [address] [place] [address] Jefe Hernandez MD [address] L[address] DOOR 3 [place] [address] documented as of this encounter Visit Diagnoses Not on filedocumented in this encounter Care Teams Rehab Director Occupational Therapist Relationship Specialty Start Date End Date Dilshad Muñoz MD PCP - General Family Medicine 04/23/20 05/07/25 Dilshad Muñoz MD [address] [place] [address] PCP - Attributed-[facility] EHP ST[facility] 11/16/22 Dea Scott MD [address] [facility] [address] [place] [address] PCP - General Family Medicine 05/08/25 documented as of this encounter
--- OUTSIDE RECORDS SUMMARY | 2025-05-21 16:06 | XMS_ITS | Encounter Summary ---
Author Organization [facility] Address [address] [place] [address] Care Team Providers Care Gate Operator Name Role Phone Dilshad Muñoz MD Primary Care Provider [phone] Dilshad Muñoz MD Unavailable [phone] Dea Scott MD Primary Care Provider [phone] Reason for Visit * Reason Onset Date Comments MEDICATION REFILL 12/18/2024 Encounter Details Date Type Department Care Team (Late st Contact Info) Description 12/18/2024 Refill [facility] Medical [facility] - Pulmonology [address] [facility], [address] [place] [address] Barbra Blair, TAWER-DAIRY BACTERIOLOGIST [address] [facility] [address] [place] [phone] MEDICATION REFILL Social History Tobacco Use Types Packs/Day Years Used Date Smoking Tobacco: Former Cigarettes Smokeless Tobacco: Never Comments:QUIT 4yrs ago. Alcohol Use Standard Drinks/Week Comments Yes 1.7 (1 standard drink = 0.6 oz p ure alcohol) occassionally AUDIT-C Answer Date Recorded Q1: How often do you have a drink containing alcohol? Never 08/29/2024 Q2: How many drinks containi ng alcohol do you have on a typical day when you are drinking? Patient does not drink Q3: How often do you have si x or more drinks on one occasion? Never 08/29/2024 PHQ-2 Answer Date Recorded Patient Health Questionnaire-2 Score 0 09/07/2024 Comments No Sex and Gender Information Value Date Recorded Sex Assigned at Female 09/16/2021 9:54 PM GLUE MOUNTER OPERATOR Legal Sex Female 5:10 PM CDT Gender Identity Female 09/16/2021 9:54 PM GLUE MOUNTER OPERATOR Sexual Orientation Straight 09/16/2021 9: 54 PM GLUE MOUNTER OPERATOR documented as of this encounter Functional [...] st Contact Info) Description 06/01/2025 11:00 AM GLUE MOUNTER OPERATOR Office Visit [facility] - Family Medicine [facility] [facility], [place] [address] Dilshad Muñoz MD [address] [place] [address] 06/01/2025 2:30 PM GLUE MOUNTER OPERATOR Appointment [facility] [address] [place] [address] Jefe Hernandez MD [address] [facility] DOOR 3 [place] [address] 06/01/2025 3:45 PM GLUE MOUNTER OPERATOR Office Visit [facility] - ENT [address] [place] [address] Jefe Hernandez MD [address] [facility] DOOR 3 [place] [address] documented as of this encounter Visit Diagnoses Not on filedocumented in this encounter Care Teams Gate Operator Relationship Specialty Start Date End Date Dilshad Muñoz MD PCP - General Family Medicine 04/23/20 05/07/25 Dilshad Muñoz MD [address] [facility] [address] [place] [address] PCP - Attributed-[facility] EHP ST 11/16/22 Dea Scott MD [address] [place] [address] PCP - General Family Medicine 05/08/25 documented as of this encounter
--- OUTSIDE RECORDS SUMMARY | 2025-05-21 16:06 | XMS_ITS | Clinical Summary ---
Author Organization [facility] Jeth[employer] Address [address] [place] [address] Care Team Providers Care Architectural Examiner Name Role Phone Dilshad Muñoz MD Unavailable [phone] Dea Scott MD Primary Care Provider [phone] Source Comments [facility],non-owned Affiliates and Associated Physician Practices is amultiple site organization consisting of ambulatory clinics and hospital sitesin [place], [place], [place] and [place]. This disclosure is being madepursuant to the Care Everywhere program and may not contain all information available regarding this patient. Last updated 18.[facility] Allergies Active Allergy Reactions Criticality Noted Date Comments Morphine Itching 11/24/2024 Medications * This document contains information received from the source organization and may not represent a complete record from that organization. * Be aware that medications may not be up to date on this document. Alwaysverify current medications with the patient. loratadine (CLARITIN) 10 MG tablet Take 1 (one) tablet by mouth at bedtime Active Docusate Sodium (COLACE PO) Take 1 tablet by mouth once daily Active Biotin 1000 MCG Take 2 (two) tablets by mouth once daily Active triamcinolone (NASACORT AQ) 55 MCG/ACT nasal inhaler [place] 1 (one) spray to 2 (two) sprays into each nostril once daily 50.7 mL 4 05/30/20 21 Active Additional Information Patient not taking.Reported on 05/08/2025 [place]-3 Fatty Acids (FISH OIL) 500 MG capsule Take 500 (five hundred) mg by mouth once daily Active Zinc Sulfate (ZINC 15 PO) Active Ascorbic Acid (Vitamin C) 100 MG Active albuterol HFA (Proventil; Ventolin; Proair) 108 (90 Base) MCG/ACT inhaler Inhale 2 (two) puffs by mouth every 6 hours as needed 18 g 5 12/20/19 24 Active ketoconazole (Nizoral) 2 % shampooIndication s:Plaque psoriasis Apply to wet hair, leave on for 3 minutes, then rinse; three times weekly. 30 days supply 120 mL 11 01/26/20 24 Active clobetasol (Temovate) 0.05 % solutionIndicatio ns:Plaque psoriasis Apply to affected area on scalp BID PRN. 30 day supply. 100 mL 11 05/02/20 24 Active clobetasol (Temovate) 0.05 % ointmentIndicatio ns:Plaque psoriasis Apply to affected areas on hands twice daily. 30 days supply. 60 g 11 05/02/20 24 Active Multiple Vitamins-Minerals (BARIATRIC MULTIVITAMINS/IRO N PO) Active acetaminophen CR (Tylenol Arthritis Pain) 650 MG tablet Take 1 (one) tablet by mouth every 8 hours as needed for Pain Active cetirizine (ZyrTEC) 10 MG tablet Take by mouth once daily Active cyanocobalamin (Vitamin B-12) 100 MCG tablet Take 1 (one) tablet by mouth once daily Active acetaminophen (Tylenol) 325 MG tablet Take 2 (two) tablets by mouth every 6 hours as needed for Fever or Pain Maximum allowable Acetaminophen amount = 4 Grams (4000 mg) / 24 hours. 60 tablet 08/29/19 25 Active oxyCODONE, immediate release, (Roxicodone) 5 MG tabletIndications :Postoperative state Take 1 (one) tablet by mouth every 4 hours as needed for Pain 25 tablet 08/29/19 25 Active Additional Information Patient not taking.Reason: Patient adjusted, Reported on 05/08/2025 nystatin (Mycostatin) 715092 UNIT/ML suspension Take 2 mL by mouth 4 times daily 60 mL 09/07/19 25 Active Additional Information Patient not taking.Reported on 05/08/2025 estradiol (Jen) 0.05 MG/24HR patch Apply 1 (one) patch to skin every 3 days 24 patch 4 09/14/19 25 Active nitrofurantoin monohyd macro crystals (Macrobid) 100 MG capsule Take 1 (one) capsule by mouth as directed Take as postcoital dose prn 30 capsule 09/14/19 25 Active Bimekizumab-bkzx (Bimzelx) 160 MG/ML SOAJIndications:O ther psoriasis Inject 320 mg subcutaneously Every 8 Weeks 2 mL 4 10/25/19 25 Active predniSONE (Deltasone) 10 MG tabletIndications :Other psoriasis 6 tabs every morning for 3 days, 5 tabs for 3 days, 4 tabs for 3 days, 3 tabs for 3 days, 2 tabs for 3 days, 1 tab for 3 days. 63 tablet 10/25/19 25 Active Additional Information Patient not taking.Reported on 05/08/2025 Ruxolitinib Phosphate (Opzelura) 1.5 % CREAIndications:O ther psoriasis 1 Application by Apply externally route 2 times daily Apply to affected area on hands and feet twice daily. 30 DS 60 g 3 10/25/19 25 Active Additional Information Patient not taking.Reported on 05/08/2025 Ruxolitinib Phosphate (Opzelura) 1.5 % CREAIndications:O ther psoriasis 1 Application by Apply externally route 2 times daily Lot [id number] Exp Aug 2025 5 g 10/25/19 25 Active Additional Information Patient not taking.Reported on 05/08/2025 Tapinarof (Vtama) 1 % CREAIndications:P almoplantar hyperkeratosis 1 Application by Apply externally route once daily Apply to affected area on hands once daily as needed rash. 30 DS 60 g 3 12/26/19 25 Active Additional Information Patient not taking.Reported on 05/08/2025 Roflumilast (Zoryve) 0.3 % CREAIndications:O ther psoriasis 1 Application by Apply externally route 2 times daily 60 g 5 01/24/20 25 Active Additional Information Patient not taking.Reported on 05/08/2025 omeprazole (PriLOSEC) 20 MG capsule TAKE 1 CAPSULE BY MOUTH EVERY DAY 90 capsule 3 02/10/20 25 Active amphetamine-dextr oamphetamine XR 24hr (Adderall XR) 15 MG capsuleIndication s:Attention deficit hyperactivity disorder (ADHD), combined type Take 1 (one) capsule by mouth once daily 30 capsule 04/30/20 25 Active fluticasone propionate (Flonase) 50 MCG/ACT nasal sprayIndications: Seasonal allergic rhinitis due to pollen [place] 2 (two) sprays into each nostril once daily 16 g 05/08/20 25 Active montelukast (Singulair) 10 MG tabletIndications :Seasonal allergic rhinitis due to pollen Take 1 (one) tablet by mouth once daily 90 tablet 4 05/08/20 25 Active amphetamine-dextr oamphetamine XR 24hr (Adderall XR) 15 MG capsuleIndication s:Attention deficit hyperactivity disorder (ADHD), unspecified ADHD type Take 1 (one) capsule by mouth once daily for 30 days 30 capsule 05/08/20 25 025 Active amphetamine-dextr oamphetamine XR 24hr (Adderall XR) 15 MG capsuleIndication s:Attention deficit hyperactivity disorder (ADHD), unspecified ADHD type Take 1 (one) capsule by mouth once daily for 30 days 30 capsule 06/02/20 25 025 Active amphetamine-dextr oamphetamine XR 24hr (Adderall XR) 15 MG capsuleIndication s:Attention deficit hyperactivity disorder (ADHD), unspecified ADHD type Take 1 (one) capsule by mouth once daily 30 capsule 07/02/20 25 Active docusate sodium (Colace) 100 MG capsule Take 1 (one) capsule by mouth 2 times daily 60 capsule 08/29/19 25 025 Disconti nued(Lis t Clean-Up ) fluticasone propionate (Flonase) 50 MCG/ACT nasal spray [place] 2 (two) sprays into each nostril once daily 16 g 09/07/19 25 025 Disconti nued(Reo rder) montelukast (Singulair) 10 MG tablet Take 1 (one) tablet by mouth once daily 90 tablet 4 12/28/19 25 025 Disconti nued(Reo rder) Roflumilast (Zoryve) 0.3 % CREA Apply to hands and feet twice daily as needed 60 g 5 02/09/20 25 025 Disconti nued(Lis t Clean-Up ) amphetamine-dextr oamphetamine XR 24hr (Adderall XR) 15 MG capsuleIndication s:Attention deficit hyperactivity disorder (ADHD), combined type Take 1 (one) capsule by mouth once daily 30 capsule 03/28/20 25 025 Disconti nued(Reo rder) Active Problems Problem Noted Date Diagnosed Date Attention deficit hyperactivity disorder (ADHD) 05/08/2025 Thyroid nodule greater than or equal to 1 cm in diameter incidentally noted on imaging study 11/24/2024 S/P laparoscopic sleeve gastrectomy 11/11/2020 Plaque psoriasis 09/20/2020 Assessment & Plan (09/20/2020 1:17 PM ASSISTANT TEACHER): - Flaring with BSA 5-10% - Pt was well controlled on Skyrizi, but has been unable to get it in last few months 2/2 insurance issues. Starting to flare on scalp and wrists - Pt is having weight loss surgery in October and her surgeon does not want her to be on Skyrizi until after surgery (Recommend talking with surgeon about when to start Skyrizi after surgery) - Recommend: Restarting Skyrizi (new paperwork initiated today and given to Alize) Increase use of Ketoconazole shampoo to TIW Increase use of clobetasol solution to daily PRN Encounter for long-term current use of high risk medication 09/20/2020 Assessment & Plan (09/20/2020 1:17 PM ASSISTANT TEACHER): - Skyrizi - Reviewed possible side effects including effect on immune system, rashes, etc - TB test from 04/2020 negative; due in Apr 2021 Moderate persistent asthma with acute exacerbati on 05/03/2020 Tracheobronchitis 05/03/2020 Primary osteoarthritis of both knees 10/31/2018 Chronic pain of left knee 07/27/2017 Patellofemoral arthritis of left knee 07/27/2017 S/P ACL surgery 12/21/2016 Exercise-induced asthma 10/19/2016 Osteoarthritis of back 08/26/2015 Recurrent boils 03/01/2014 Resolved Problems Problem Noted Date Diagnosed Date Resolved Date Tobacco dependence 08/23/2014 8 Heavy menses 02/24/2013 05/30/2021 Encounters Date Type Department Care Team Description 05/09/2025 Patient Outreach [facility] [address] [place] [address] Lexy Israel RN 05/08/2025 10:40 AM CDT Office Visit [facility] [address] [phone] Dea Scott MD Well adult health check (Primary Dx); Acute pain of left shoulder; Subacromial impingement of left shoulder; Plaque psoriasis; Need for vaccination; Colon cancer screening; Screening cholesterol level; Seasonal allergic rhinitis due to pollen; Need for prophylactic vaccination and inoculation against influenza; Attention deficit hyperactivity disorder (ADHD), unspecified ADHD type; Tuberculosis screening; Diabetes mellitus screening 05/08/2025 Travel 04/30/2025 Refill [facility] [address] [phone] Dilshad Muñoz MD MEDICATION REFILL 03/27/2025 Refill [facility] [address] [phone] Dilshad Muñoz MD MEDICATION REFILL from Last 3 Months Immunizations Immunization Administration Dates Next Due Covid Pfizer primary monoval ent 12+ yr 0.3mL Purple cap 09/27/2020,09/06/2020 INFLUENZA VACCINE 05/26/2024, 2,04/26/2021,2019 INFLUENZA VACCINE, TRIV. (FL UZONE; FLULAVAL; FLUARIX; AFLURIA TRIVALENT; 6MO+), 0.5 ML (IIV3) 05/08/2025 PNEUMOCOCCAL PCV20 CONJ VAC IM 05/08/2025 TDAP (7yrs+) 05/30/2021 iNFLUENZA VACCINE, RECOM-LEVINE, QUADR. (FLUBLOCK QUADRIVALENT; 18Y+) (RIV4) 04/03/2019 Family History Medical History Relation Name Comments COPD - Chronic Obstructive Pulmonary Disease Mother Hyperlipidemia Mother Hypertension Mother Cancer - Breast Paternal Grandmother Asthma Neg Hx CVA Neg Hx Cancer - Other Neg Hx Cancer - Skin, Melanoma Neg Hx Cancer - Skin, Non Melanoma Neg Hx Eczema Neg Hx Hemophilia Neg Hx Psoriasis Neg Hx Relation Name Status Comments Father Alive Mother Alive Paternal Grandmother Social History Tobacco Use Types Packs/Day Years Used Date Smoking Tobacco: Former Cigarettes Smokeless Tobacco: Never Tobacco Cessation:Counseling Given: Not Answered Comments:QUIT 4yrs ago. Alcohol Use Standard Drinks/Week [...] Date Recorded Patient Health Questionnaire-2 Score 0 05/08/2025 Comments No Sex and Gender Information Value Date Recorded Sex Assigned at Female 09/16/2021 9:54 PM ASSISTANT TEACHER Legal Sex Female 5:10 PM CDT Gender Identity Female 09/16/2021 9:54 PM ASSISTANT TEACHER Sexual Orientation Straight 09/16/2021 9: 54 PM ASSISTANT TEACHER Last Filed Vital Signs Vital Sign Reading Time Taken Comments Blood Pressure 120/87 05/08/2025 10:57 AM CDT Pulse 84 05/08/2025 10:57 AM CDT Temperature 36.4 C (97.5 F) 08/29/2024 4:21 PM ASSISTANT TEACHER Respiratory Rate 16 08/29/2024 4:56 PM ASSISTANT TEACHER Oxygen Saturation 98% 05/08/2025 10:57 AM CDT Inhaled Oxygen Concentration - - Weight 112 kg (247 lb) 05/08/2025 10:57 AM CDT Height 167.6 cm (5' 6) 05/08/2025 10:57 AM CDT Body Mass Index 39.87 05/08/2025 10:57 AM CDT Plan of Treatment Upcoming Encounters Date Type Department Care Team (Late st Contact Info) Description 06/01/2025 11:00 AM ASSISTANT TEACHER Office Visit [facility] - Family Medicine [address] [place] [address], [place] [address] Dilshad Muñoz MD [address] [place] [address] [place] [phone] 06/01/2025 2:30 PM ASSISTANT TEACHER Appointment [facility] [address] [place] [phone] Jefe Hernandez MD [address] [place] [address] [address] [place] [address] 06/01/2025 3:45 PM ASSISTANT TEACHER Office Visit [facility] - ENT [address] [place] [phone] Jefe Hernandez MD [address] [place] [address] [address] [place] [address] Health Maintenance Due Date Last Done Comments COLOGUARD (AGES 45-75) - COLON CA SCREENING 1975 CT COLONOGRAPHY - COLON CA SCREENING 1975 FIT - COLON CA SCREENING 1975 FLEX SIG - COLON CA SCREENING 1975 HEPATITIS B VACCINE (1 of 3 - 19+ 3-dose series) 1992 ZOSTER VACCINE (1 of 2) 2023 COVID-19 VACCINE ( season) 2025 10/07/2021, 09/27/2020, 09/06/2020 COLON MONITORING 07/08/2025 07/08/2015, , 07/08/2015 COLONOSCOPY - COLON CA SCREENING 07/08/2025 07/08/2015, 07/08/2015, 07/08/2015 Colorectal Cancer Screening 07/08/2025 MAMMOGRAM 07/28/2026 07/28/2024, 04/0 11/2022, 01/27/2021, Additional history exists LIPID TESTING 02/08/2029 02/09/2024, 04/18, 06/03/2018, Additional history exists PAP with HPV 07/27/2029 07/27/2024, 01/27/2021 DTAP/TDAP/TD VACCINES (2 - Td or Tdap) 05/30/2031 05/30/2021 HEPATITIS C SCREENING Completed 10/28/2018 SCREENING FOR DIABETES Discontinued , 02/09/2024, 07/21/2022, Additional history exists DEPRESSION SCREENING Completed 07/27/2024, 12/06/2023, 11/30/2022 INFLUENZA VACCINE Completed 05/08/2025, , 05/02/2022, Additional history exists PNEUMOCOCCAL VACCINE 50+ Completed 05/08/2025 HIB VACCINE Aged Out No longer eligi ble based on patient's age to complete this topic HIV SCREENING Discontinued HPV VACCINE Aged Out No longer eligi ble based on patient's age to complete this topic MENINGOCOCCAL (Group B) VACCINE SHARED DECISION-MAKING Aged Out No longer eligible based on patient's age to complete this topic MENINGOCOCCAL GROUPS A/C/Y/W VACCINE Aged Out No longer eligible based on patient's age to complete this topic Procedures Procedure Name Priority Date/Time Associated Diagnosis Comments MAMMO BILAT SCREENING W AIDAN Routine 07/28/2024 1:33 PM ASSISTANT TEACHER Encounter for screening mammogram for malignant neoplasm of breast High risk medications (not anticoagulants) long-term use HPV DETECTION HIGH RISK GE Routine 07/27/2024 1:56 PM ASSISTANT TEACHER Screening for cervical cancer HEMOGLOBIN A1C 02/09/2024 7:49 AM CDT Other psoriasis LIPID PROFILE 02/09/2024 7:46 AM CDT Other psoriasis HEPATITIS C AB W/RFLX TO HCV RNA QN PCR 10/28/2018 10:39 AM CDT ENDOSCOPY, COLON, SCREENING Routine 07/08/2015 7:50 AM ASSISTANT TEACHER from Last 3 Months or Most Recently Relevant to Health Maintenance Results * Mammo Bilat Screening W Aidan (07/28/2024 1:33 PM ASSISTANT TEACHER) Anatomical Region Laterality Modality Breast Bilateral Mammography 07/28/2024 6:00 PM ASSISTANT TEACHER Impressions 07/31/2024 10:32 AM ASSISTANT TEACHER IMPRESSION: No mammographic evidence of malignancy. RECOMMENDATION: 1. Screening mammography in one year, pending no interval breast concerns. 2. 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 Patient will receive the examination results by lay letter. OVERALL ASSESSMENT: BI-RADS CATEGORY 1: NEGATIVE. > Interpreting Provider: Irene Patel MD, FACR on 07/31/2024 10:32 AM Narrative 07/31/2024 10:32 AM ASSISTANT TEACHER EXAMINATIONS: BILATERAL DIGITAL SCREENING MAMMOGRAM AND BILATERAL BREAST TOMOSYNTHESIS LOCATION: [facility] EXAM DATE: 07/28/2024 HISTORY: Screening. 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 Family history of breast cancer in a paternal grandmother. RISK ASSESSMENT CALCULATION: Patient completed a breast cancer risk assessment during her appointment 07/31/2024. Based upon the information she provided and her mammographic breast density, her lifetime risk of developing breast cancer is 15 % (Average Risk <15%; Intermediate / Moderate Risk 15-19; High Risk > 20%). Risk assessment based upon the Tyrer-Cuzick v8 model. COMPARISON: Comparison is made to prior mammograms back to . TECHNIQUE: Tomosynthesis (3D) and reconstructed synthetic 2-D images acquired and reviewed in the bilateral craniocaudal and mediolateral oblique projections. A total of 6 images obtained. Mole marker placed on the left breast. Transpara AI was utilized in the interpretation. BREAST PARENCHYMAL COMPOSITION: Category B: There are scattered areas of fibroglandular density. FINDINGS: There are no suspicious findings or evidence of malignancy on mammography. There is no significant change from the prior. Carey Rubi MD MAMMO ORDERABLES Fin al Result * HPV DETECTION HIGH RISK GE (07/27/2024 1:56 PM ASSISTANT TEACHER) High Risk Human Papilloma Result Not detected Not detected 08/02/2024 8:23 AM ASSISTANT TEACHER [facility] High Risk Human Papilloma Interp 08/02/2024 8:23 AM ASSISTANT TEACHER [facility] Comment:High Risk Human Gino lloma Virus was Not Detected. Pathology/Cytolo gy MISCELLANEOUS SAMPLES / Unknown 07/27/2024 1:56 PM ASSISTANT TEACHER 07/28/2024 1:03 PM ASSISTANT TEACHER Narrative [facility] - 08/02/2024 8:23 AM ASSISTANT TEACHER Nucleic acid isolated from the specimen was analyzed with a nucleic acid amplification test (FDA approved Gen-Probe HPV Assay) to detect high risk human papilloma virus (Types: 16, 18, 31, 33, 35, 39, 45, 51, 52, 56, 58, 59, 66, and 68). The reference range is Not Detected. Comment: These test results should not be used as the sole basis for clinical assessment and treatment of patients. These results should always be correlated with other available data (cytology, histology, and clinical information). us Carey Rubi MD LAB - MICROBIOLOGY O RDERABLES Final Result [facility] [address] [phone] * HEMOGLOBIN A1C (02/09/2024 7:49 AM CDT) Hemoglobin A1c 5.2 <5.7 % of total Hgb [facility] Comment: For the purpose of screening for the presence of diabetes: <5.7% Consistent with the absence of diabetes 5.7-6.4% Consistent with increased risk for diabetes (prediabetes) > or =6.5% Consistent with diabetes This assay result is consistent with a decreased risk of diabetes. Currently, no consensus exists regarding use of hemoglobin A1c for diagnosis of diabetes in children. According to [place] Diabetes Association (ADA) guidelines, hemoglobin A1c <7.0% represents optimal control in non- diabetic patients. Different metrics may apply to specific patient populations. Standards of Medical Care in Diabetes(ADA). This test was performed on the Ventura tripp c503 platform. Effective 10/04/23, a change in test platforms from the [employer] Claims Customer Service Representative to the Ventura tripp c503 may have shifted HbA1c results compared to historical results. Based on laboratory validation testing conducted at [facility], the Ventura platform relative to the [employer] platform had an average increase in HbA1c value of < or = 0.3%. This difference is within accepted variability established by the National Glycohemoglobin Standardization Program. Note that not all individuals will have had a shift in their results and direct comparisons between historical and current results for testing conducted on different platforms is not recommended. REPORT COMMENT: FASTING:YES Test Performed at: [facility] [address] ANNETTE BARRY MD 02/09/2024 7:49 AM CDT 02/09/2024 7:49 AM CDT Dilshad Muñoz MD LAB - CHEMISTRY ORDERABLES Final Result [address] [address] * (ABNORMAL) LIPID PROFILE (02/09/2024 7:46 AM CDT) [facility] Signature Cholesterol 209(H) <200 mg/dL [facility] HDL Cholesterol 49(L) > OR = 50 mg/dL [facility] Triglycerides 303(H) <150 mg/dL [facility] Comment: If a non-fasting specimen was collected, consider repeat triglyceride testing on a fasting specimen if clinically indicated. Brandin et al. J. of Clin. Lipidol. 2015;9:129-169. LDL Calculated 117(H) mg/dL (calc) [facility] Comment: Reference range: <100 Desirable range <100 mg/dL for primary prevention; <70 mg/dL for patients with CHD or diabetic patients with > or = 2 CHD risk factors. LDL-C is now calculated using the Haider-Hensley calculation, which is a validated novel method providing better accuracy than the Friedewald equation in the estimation of LDL-C. Haider JIMÉNEZ et al. HEIDY. 2013;310(19): 6123-1948 (http://education.[employer].Kaiam/faq/NJO519) CHOL/HDLC RATIO 4.3 <5.0 (calc) [facility] Non HDL Cholesterol 160(H) <130 mg/dL (calc) [facility] Comment: For patients with diabetes plus 1 major ASCVD risk factor, treating to a non-HDL-C goal of <100 mg/dL (LDL-C of <70 mg/dL) is considered a therapeutic option. REPORT COMMENT: FASTING:YES Test Performed at: [facility] [address] [place] [address] ANNETTE BARRY MD 02/09/2024 7:46 AM CDT 02/09/2024 7:47 AM CDT us Dilshad Muñoz MD LAB - CHEMISTRY ORDERABLES Final Result Performing Organization Address [facility] Phone Number [facility] [address] [place] [address] * HEPATITIS C AB W/RFLX TO HCV RNA QN PCR (10/28/2018 10:39 AM CDT) Hepatitis C Antibody NON-REACTI VE NON-REACT [facility] Signal to Cut-Off 0.01 <1.00 [facility] Comment: HCV antibody was non-reactive. There is no laboratory evidence of HCV infection. In most cases, no further action is required. However, if recent HCV exposure is suspected, a test for HCV RNA (test code 54527) is suggested. For additional information please refer to http://education.Kindful/faq/LSH16o4 (This link is being provided for informational/ educational purposes only.) Test Performed at: [facility] [id number] [place] [address] TINO RIDDLE DO,MPH 10/28/2018 10:3 9 AM CDT 10/28/2018 10:40 AM CDT us Pauline Willaimson MD LAB - CHEMISTRY ORDERABLES Fi nal Result Performing Organization Address [facility] de Phone Number [facility] [address] [place] [phone] * ENDOSCOPY, COLON, SCREENING (07/08/2015 7:50 AM ASSISTANT TEACHER) Report Endoscopy POC _ Patient Name: Kianna Agosto Procedure Date: 07/08/2015 7:50 AM Date of : 1975 Admit Type: Outpatient Age: 40 Gender: Female Attending MD: Elvia Walsh, _ Procedure: Colonoscopy Indications: Rectal bleeding Providers: Elvia Walsh (Doctor), Carey Echavarria RN, Jacqui Campos, Merchandise Displayer Patient Profile: Rectal bleeding, no previous colonoscopy, no family h/o colon cancer Referring MD: Aurea Sofia MD (Referring MD) Medicines: Monitored Anesthesia Care Complications: No immediate complications. _ Procedure: After I obtained informed consent, the scope was passed under direct vision. Throughout the procedure, the patient's blood pressure, pulse, and oxygen saturations were monitored continuously. The Colonoscope was introduced through the anus and advanced to the cecum, identified by appendiceal orifice and ileocecal valve. The colonoscopy was performed without difficulty. The patient tolerated the procedure well. The quality of the bowel preparation was good. Impression: - Non-thrombosed external hemorrhoids found on perianal exam. - Two 3 to 5 mm polyps in the rectum and in the sigmoid colon. Resected and retrieved. - Non-bleeding internal hemorrhoids, likely cause of rectal bleeding Findings: The perianal exam findings include non-thrombosed external hemorrhoids. Two sessile polyps were found in the rectum and in the sigmoid colon. The polyps were 3 to 5 mm in size. These polyps were removed with a jumbo cold forceps. Resection and retrieval were complete. Non-bleeding internal hemorrhoids were found during retroflexion. The hemorrhoids were medium-sized. _ Recommendation: - Repeat colonoscopy in 5-10 years for surveillance based on pathology results. - Return to primary care physician as previously scheduled. - Discharge patient to home (with escort). Procedure Code(s): --- Professional --- 16928, Colonoscopy, flexible; with biopsy, single or multiple --- Technical --- 54649, Colonoscopy, flexible; with biopsy, single or multiple Diagnosis Code(s): --- Professional --- K64.4, Residual hemorrhoidal skin tags K64.8, Other hemorrhoids K62.1, Rectal polyp D12.5, Benign neoplasm of sigmoid colon K62.5, Hemorrhage of anus and rectum --- Technical --- K64.4, Residual hemorrhoidal skin tags K64.8, Other hemorrhoids K62.1, Rectal polyp D12.5, Benign neoplasm of sigmoid colon K62.5, Hemorrhage of anus and rectum CPT copyright 2014 [employer]. All rights reserved. The codes documented in this report are preliminary and upon crop or livestock tenant farmer review may be revised to meet current compliance requirements. Elvia Walsh, 07/08/2015 8:52:57 AM Number of Addenda: 0 Note Initiated On: 07/08/2015 7:50 AM [facility] 07/08/2015 7:50 AM ASSISTANT TEACHER Elvia Walsh MD GI PROCEDURE ORDERABLES E dited Result - Final [facility] from Last 3 Months or Most Recently Relevant to Health Maintenance Insurance [facility] Member Subscriber Plan / Payer (Ef fective 2023-Present) Name:Kianna Agosto Relation to Subscriber:Self Name:Kianna Agosto Payer ID:[id number] (NAIC) Group ID:[id number] Type:Commercial Address: [place] [id number] [facility] Advance Directives * Full Code (Latest Code Status on File) Date Activated Date Inactivated Comments 11/11/2020 12:14 PM 11/12/2020 9:33 PM Care Teams Architectural Examiner Relationship Specialty Start Date End Date Dilshad Muñoz MD [address] [place] [address] PCP - Attributed-[facility] ST[facility] 11/16/22 Dea Scott MD [address] [place] [address] PCP - General Family Medicine 05/08/25
--- OUTSIDE RECORDS SUMMARY | 2025-05-21 16:06 | XMS_ITS | Encounter Summary ---
Author Organization [facility] Address [address] [facility] [place] [address] Care Team Providers Care Career Based Intervention Coordinator Name Role Phone Dilshad Muñoz MD Primary Care Provider [phone]- [phone] Dilshad Muñoz MD Unavailable Dea [place] MD Primary Care Provider Reason for Visit * Reason Onset Date Comments MEDICATION REFILL 05/02/2024 Encounter Details Date Type Department Care Team (Late st Contact Info) Description 05/02/2024 Refill [facility] - Family Medicine [address] [place] [address], [facility] [phone] Dilshad Muñoz MD [address] [place] [address] [place] [phone] MEDICATION REFILL Social History Tobacco Use Types [...] Sex Assigned at Female 09/16/2021 9:54 PM EXECUTIVE RECRUITER Legal Sex Female 5:10 PM CDT Gender Identity Female 09/16/2021 9:54 PM EXECUTIVE RECRUITER Sexual Orientation Straight 09/16/2021 9: 54 PM EXECUTIVE RECRUITER documented as of this encounter Functional Status [...] st Contact Info) Description 06/01/2025 11:00 AM EXECUTIVE RECRUITER Office Visit [facility] - Family Medicine [address] [place] [address], [place] [address] Dilshad Muñoz MD [address] [place] [address] [place] [address] 06/01/2025 2:30 PM EXECUTIVE RECRUITER Appointment [facility] [address] [place] [address] Jefe Hernandez MD [address] [place] [address] LEVEL DOOR 3 [place] [address] 06/01/2025 3:45 PM EXECUTIVE RECRUITER Office Visit [facility]NT [address] [facility], [place] [address] Jefe Hernandez MD [address] [place] [address] DOOR 3 [place] [address] documented as of this encounter Visit Diagnoses Diagnosis Attention deficit hyperactivity disorder (ADHD), combined type documented in this encounter Care Teams Career Based Intervention Coordinator Relationship Specialty Start Date End Date Dilshad Muñoz MD PCP - General Family Medicine 04/23/20 05/07/25 Dilshad Muñoz MD [address] [facility] [address] [place] [address] PCP - Attributed-[facility] 11/16/22 Dea Scott MD [address] [facility] [address] [place] [address] PCP - General Family Medicine 05/08/25 documented as of this encounter
--- OUTSIDE RECORDS SUMMARY | 2025-05-21 16:06 | XMS_ITS | Encounter Summary ---
Author Organization [facility] Address [address] [facility] [place] [address] Care Team Providers Care Concrete Bucket Loader Name Role Phone Dilshad Muñoz MD Primary Care Provider [phone]- [phone] Dilshad Muñoz MD Unavailable [phone] Dea [place] MD Primary Care Provider [phone] Reason for Visit * Reason Comments Refill Request Encounter Details Date Type Department Care Team (Late st Contact Info) Description 05/02/2024 Refill [facility] Dermatology [address] [place] [address] [place] [phone] Flaquita Hernandez MD [address] [place] [address] [place] [address] Refill Request Social History Tobacco Use Types [...] Sex Assigned at Female 09/16/2021 9:54 PM RETAIL TEAM MEMBER Legal Sex Female 5:10 PM CDT Gender Identity Female 09/16/2021 9:54 PM RETAIL TEAM MEMBER Sexual Orientation Straight 09/16/2021 9: 54 PM RETAIL TEAM MEMBER documented as of this encounter Functional Status [...] Date Type Department Care Team (Late st [facility] Info) Description 06/01/2025 11:00 AM RETAIL TEAM MEMBER Office Visit [facility] Group - Family Medicine [address] [place] [phone] Dilshad Muñoz MD [address] [place] [address] [place] [address] 06/01/2025 2:30 PM RETAIL TEAM MEMBER Appointment [facility] 12[address] [place] [address] Jefe Hernandez MD [address] [place] [address] 3 [place] [address] 06/01/2025 3:45 PM RETAIL TEAM MEMBER Office Visit [facility] - ENT [address] [place] [address] Jefe Hernandez MD [address] [place] LEVEL DOOR 3 [place] [address] documented as of this encounter Visit Diagnoses Not on filedocumented in this encounter Care Teams Concrete Bucket Loader Relationship Specialty Start Date End Date Dilshad Muñoz MD PCP - General Family Medicine 04/23/20 05/07/25 Dilshad Muñoz MD [address] [place] [phone] PCP - Attributed-[facility] 11/16/22 Dea [place] MD [address] [facility] 2[address] [place] [address] PCP - General Family Medicine 05/08/25 documented as of this encounter
--- OUTSIDE RECORDS SUMMARY | 2025-05-21 16:06 | XMS_ITS | Encounter Summary ---
Author Organization [facility] Address [address] [facility] [place] [address] Care Team Providers Care Oceanographic Meteorologist Name Role Phone Dilshad Muñoz MD Primary Care Provider [phone]- [phone] Dilshad Muñoz MD Unavailable [phone] Dea [place] MD Primary Care Provider [phone] Reason for Visit * Reason Comments Refill Request Encounter Details Date Type Department Care Team (Late st Contact Info) Description 04/27/2024 Refill [facility] D[facility] [address] [place] [address] [place] [address] Flaquita Hernandez MD [address] [place] [address] [place] [address] Refill Request Social History Tobacco Use Types [...] Sex Assigned at Female 09/16/2021 9:54 PM PROGRESS CLERK Legal Sex Female 5:10 PM CDT Gender Identity Female 09/16/2021 9:54 PM PROGRESS CLERK Sexual Orientation Straight 09/16/2021 9: 54 PM PROGRESS CLERK documented as of this encounter Functional Status * Is person deaf or have serious hearing difficulty? Answer Date of Assessment Author No 11/11/2020 1:42 PM Sharifa Maldnoado RN * Is person blind or have [...] Date Type Department Care Team (Late st [facility] Info) Description 06/01/2025 11:00 AM PROGRESS CLERK Office Visit [facility] Physician Group - Family Medicine [address] [place] [address] Dilshad Muñoz MD [address] [place] [address] [place] [address] 06/01/2025 2:30 PM PROGRESS CLERK Appointment [facility] 1201 [place] [address] Jefe Hernandez MD [address] [place] [address] 3 [place] [address] 06/01/2025 3:45 PM PROGRESS CLERK Office Visit [facility] Physician [facility] - ENT [address] [place] [address] Jefe Hernandez MD [address] [place] LEVEL DOOR 3 [place] [address] documented as of this encounter Visit Diagnoses Not on filedocumented in this encounter Care Teams Oceanographic Meteorologist Relationship Specialty Start Date End Date Dilshad Muñoz MD PCP - General Family Medicine 04/23/20 05/07/25 Dilshad Muñoz MD [address] [place] [phone] PCP - Attributed-[facility] 11/16/22 Dea [place] MD [address] [facility] 2L [place] [address] PCP - General Family Medicine 05/08/25 documented as of this encounter
--- OUTSIDE RECORDS SUMMARY | 2025-05-21 16:06 | XMS_ITS | Encounter Summary ---
Author Organization [facility] Address [address] [facility] [place] [address] Care Team Providers Care Oncology Nurse Name Role Phone Dilshad Muñoz MD Primary Care Provider [phone] Dilshad Muñoz MD Unavailable [phone] Dea [place] MD Primary Care Provider [phone] Reason for Visit * Reason Comments Refill Request Encounter Details Date Type Department Care Team (Late st Contact Info) Description 05/10/2024 Refill [facility] D[facility] [address] [place] [address] [place] [phone] Flaquita Hernandez MD [address] [place] [address] [place] [address] Refill Request Social History Tobacco Use Types [...] Sex Assigned at Female 09/16/2021 9:54 PM SEARCH PLANNER Legal Sex Female 5:10 PM CDT Gender Identity Female 09/16/2021 9:54 PM SEARCH PLANNER Sexual Orientation Straight 09/16/2021 9: 54 PM SEARCH PLANNER documented as of this encounter Functional Status [...] Date Type Department Care Team (Late st [facility] Info) Description 06/01/2025 11:00 AM SEARCH PLANNER Office Visit [facility] - Family Medicine [address] [place] [address] Dilshad Muñoz MD [address] [place] [address] [place] [address] 06/01/2025 2:30 PM SEARCH PLANNER Appointment [facility] 1201 [place] [address] Jefe Hernandez MD [address] [place] [address] 3 [place] [address] 06/01/2025 3:45 PM SEARCH PLANNER Office Visit [facility] - ENT [address] [place] [address] Jefe Hernandez MD [address] [place] LEVEL DOOR 3 [place] [address] documented as of this encounter Visit Diagnoses Not on filedocumented in this encounter Care Teams Oncology Nurse Relationship Specialty Start Date End Date Dilshad Muñoz MD PCP - General Family Medicine 04/23/20 05/07/25 Dilshad Muñoz MD [address] [place] [phone] PCP - Attributed-[facility] ST[facility] 11/16/22 Dea [place] MD [address] [facility] [place] [address] PCP - General Family Medicine 05/08/25 documented as of this encounter
--- OUTSIDE RECORDS SUMMARY | 2025-05-21 16:06 | XMS_ITS | Encounter Summary ---
Author Organization [facility] Address [address] [facility] [place] [address] Care Team Providers Care Automatic Coin Machine Mechanic Name Role Phone Dilshad Muñoz MD Primary Care Provider [phone] Dilshad Muñoz MD Unavailable Dea Scott MD Primary Care Provider [phone] Reason for Visit * Reason Onset Date Comments MEDICATION REFILL 01/24/2023 Encounter Details Date Type Department Care Team (Late st Contact Info) Description 01/24/2023 Refill [facility] - Family Medicine [address] [place] [address], [facility] [place] [address] Dilshad Muñoz MD [address] [place] [address] [place] [address] MEDICATION REFILL Social History Tobacco Use Types Packs/Day Years Used Date Smoking Tobacco: Former Cigarettes Smokeless Tobacco: Never Comments:QUIT 4yrs ago. Alcohol Use Standard Drinks/Week Comments Yes 1.7 (1 standard drink = 0.6 oz p ure alcohol) occassionally PHQ-2 Answer Date Recorded PHQ2 TOTAL SCORE 0 11/25/2022 Comments No Sex and Gender Information Value Date Recorded Sex Assigned at Female 09/16/2021 9:54 PM CRIME SCENE TECHNICIAN Legal Sex Female 5:10 PM CDT Gender Identity Female 09/16/2021 9:54 PM CRIME SCENE TECHNICIAN Sexual Orientation Straight 09/16/2021 9: 54 PM CRIME SCENE TECHNICIAN documented as of this encounter Functional Status [...] st Contact Info) Description 06/01/2025 11:00 AM CRIME SCENE TECHNICIAN [facility] [address] [place] [address], [place] [address] Dilshad Muñoz MD [address] [place] [address] [place] [address] 06/01/2025 2:30 PM CRIME SCENE TECHNICIAN Appointment [facility] 12[address] [place] [address] Jefe Hernandez MD [address] [place] [address] LEVEL DOOR 3 [place] [address] 06/01/2025 3:45 PM CRIME SCENE TECHNICIAN Office Visit [facility], [place] [address] Jefe Hernandez MD [address] [place] [address] DOOR 3 [place] [address] documented as of this encounter Visit Diagnoses Not on filedocumented in this encounter Care Teams Automatic Coin Machine Mechanic Relationship Specialty Start Date End Date Dilshad Muñoz MD PCP - General Family Medicine 04/23/20 05/07/25 Dilshad Muñoz MD [address] [place] [address] 2[place] [address] PCP - Attributed-[facility] 11/16/22 Dea Scott MD [address] [place] [address] 2[place] [address] PCP - General Family Medicine 05/08/25 documented as of this encounter
--- OUTSIDE RECORDS SUMMARY | 2025-05-21 16:06 | XMS_ITS | Encounter Summary ---
Author Organization [facility] Address [address] [facility] [place] [address] Care Team Providers Care Technology Infusion Specialist Name Role Phone Dilshad Muñoz MD Primary Care Provider [phone] Dilshad Muñoz MD Unavailable [phone] Dea [place] MD Primary Care Provider [phone] Encounter Details Date Type Department Care Team (Late st Contact Info) Description 11/03/2024 Telephone [facility] Dermatology [address] [place] [address] Flaquita Hernandez MD [address] [place] [address] [place] [address] Social History Tobacco Use Types Packs/Day Years [...] Sex Assigned at Female 09/16/2021 9:54 PM STATISTICAL METHODS PROFESSOR Legal Sex Female 5:10 PM CDT Gender Identity Female 09/16/2021 9:54 PM STATISTICAL METHODS PROFESSOR Sexual Orientation Straight 09/16/2021 9: 54 PM STATISTICAL METHODS PROFESSOR documented as of this encounter Functional Status * Is person deaf or have serious hearing difficulty? Answer Date of Assessment Author No 11/11/2020 1:42 PM CDT Sharifa Shukla RN * Is person blind or have serious difficulty seeing? Answer Date of Assessment Author No 11/11/2020 1:42 PM CDT Sharifa Shukla RN * Does person have serious difficulty walking/climbing stairs? Answer Date of Assessment Author No 11/11/2020 1:42 PM CDT Sharifa Shukla RN * Does person have difficulty dressing/bathing? Answer Date of Assessment Author No 11/11/2020 1:42 PM CDT Sharifa Shukla RN * Does person have difficulty doing errands alone? Answer Date of Assessment Author No 11/11/2020 1:42 PM CDT Sharifa Shukla RN documented as of this encounter Mental Status * Does person have difficulty concentrating/remembering/making decisions? Answer Entry Date Author No 11/11/2020 1:42 PM CDT Sharifa Shukla RN documented in this encounter Miscellaneous Notes * Telephone Encounter - Kirt Faulkner - 11/03/2024 8:28 AM CDT Sally with [facility] is calling for PA for Bimekizumab-bkzx (Bimzelx) 160 MG/ML SOAJ. New PA is due by December 04 and was calling to inform dr they need this for pt to remain on Bridge program documented in this encounter Plan of Treatment Upcoming Encounters Date Type Department Care Team (Late st Contact Info) Description 06/01/2025 11:00 AM STATISTICAL METHODS PROFESSOR Office Visit [facility] Physician Group - Family Medicine [address] [place] [address] [place] [address] Dilshad Muñoz MD [address] [place] [address] 2[address] [place] [address] 06/01/2025 2:30 PM STATISTICAL METHODS PROFESSOR Appointment [facility] 12[address] [place] [address] Jefe Hernandez MD [address] [place] [address] DOOR 3 [place] [address] 06/01/2025 3:45 PM STATISTICAL METHODS PROFESSOR Office Visit [facility]ician Group - ENT [address] [place] [address] Jefe Hernandez MD [address] [place] [address] DOOR 3 [place] [address] documented as of this encounter Visit Diagnoses Not on filedocumented in this encounter Care Teams Technology Infusion Specialist Relationship Specialty Start Date End Date Dilshad Muñoz MD PCP - General Family Medicine 04/23/20 05/07/25 Dilshad Muñoz MD [address] [place] [address] 2[address] [place] [address] PCP - Attributed-[facility] 11/16/22 Dea Scott MD [address] [place] [address] 2L [place] [address] PCP - General Family Medicine 05/08/25 documented as of this encounter
--- OUTSIDE RECORDS SUMMARY | 2025-05-21 16:06 | XMS_ITS | Encounter Summary ---
Author Organization [facility] Address [address] [facility] [place] [address] Care Team Providers Care Cloth Covered Helmet Puller Name Role Phone Dilshad Muñoz MD Primary Care Provider [phone] Dilshad Muñoz MD Unavailable Dea [place] MD Primary Care Provider Reason for Visit * Reason Onset Date Comments MEDICATION REFILL 08/06/2022 Encounter Details Date Type Department Care Team (Late st Contact Info) Description 08/06/2022 Refill [facility] Family and Community Medicine [address] [place] [address], [place] [address] Dilshad Muñoz MD [address] [place] [address] [place] [phone] MEDICATION REFILL Social History Tobacco Use Types Packs/Day Years Used Date Smoking Tobacco: Former Cigarettes Smokeless Tobacco: Never Comments:QUIT 4yrs ago. Alcohol Use Standard Drinks/Week Comments Yes 1.7 (1 standard drink = 0.6 oz p ure alcohol) occassionally PHQ-2 Answer Date Recorded PHQ2 TOTAL SCORE 6 01/07/2021 Comments No Sex and Gender Information Value Date Recorded Sex Assigned at Female 09/16/2021 9:54 PM CHIEF INTERNAL AUDITOR Legal Sex Female 5:10 PM CDT Gender Identity Female 09/16/2021 9:54 PM CHIEF INTERNAL AUDITOR Sexual Orientation Straight 09/16/2021 9: 54 PM CHIEF INTERNAL AUDITOR documented as of this encounter Functional Status [...] st Contact Info) Description 06/01/2025 11:00 AM CHIEF INTERNAL AUDITOR [facility] [address] [place] [address], [place] [address] Dilshad Muñoz MD [address] [place] [address] [place] [address] 06/01/2025 2:30 PM CHIEF INTERNAL AUDITOR Appointment [facility] [address] [place] [address] Jefe Hernandze MD [address] [place] [address] LEVEL DOOR 3 DEPT [place] [address] 06/01/2025 3:45 PM CHIEF INTERNAL AUDITOR Office Visit [facility] - [facility] [address] [facility], [place] [address] Jefe Hernandez MD [address] [place] [address] DOOR 3 DEPT [place] [address] documented as of this encounter Visit Diagnoses Not on filedocumented in this encounter Care Teams Cloth Covered Helmet Puller Relationship Specialty Start Date End Date Dilshad Muñoz MD PCP - General Family Medicine 04/23/20 05/07/25 Dilshad Muñoz MD [address] [place] [address] 2[place] [address] PCP - Attributed-[facility] EHP [facility] 11/16/22 Dea [place] MD [address] [place] [address] 2[place] [address] PCP - General Family Medicine 05/08/25 documented as of this encounter
--- OUTSIDE RECORDS SUMMARY | 2025-05-21 16:06 | XMS_ITS | Encounter Summary ---
Author Organization [facility] Address [address] [facility] [place] [address] Care Team Providers Care Threader Operator Name Role Phone Dilshad Muñoz MD Primary Care Provider [phone] Dilshad Muñoz MD Unavailable [phone] Dea [place] MD Primary Care Provider [phone] Reason for Visit * Reason Onset Date Comments MEDICATION REFILL 04/16/2022 Encounter Details Date Type Department Care Team (Late st Contact Info) Description 04/16/2022 Refill [facility] Family and Community Medicine [address] [place] [phone] Dilshad Muñoz MD [address] [place] [address] [place] [phone] MEDICATION REFILL Social History Tobacco Use Types Packs/Day Years Used Date Smoking Tobacco: Former Cigarettes Smokeless Tobacco: Never Comments:QUIT 4yrs ago. Alcohol Use Standard Drinks/Week Comments Yes 1.7 (1 standard drink = 0.6 oz p ure alcohol) occassionally PHQ-2 Answer Date Recorded PHQ2 TOTAL SCORE 6 01/07/2021 Comments No Sex and Gender Information Value Date Recorded Sex Assigned at Female 09/16/2021 9:54 PM AS400 PROGRAMMER Legal Sex Female 5:10 PM CDT Gender Identity Female 09/16/2021 9:54 PM AS400 PROGRAMMER Sexual Orientation Straight 09/16/2021 9: 54 PM AS400 PROGRAMMER documented as of this encounter Functional Status [...] st Contact Info) Description 06/01/2025 11:00 AM AS400 PROGRAMMER [facility] [address] [place] [address], [place] [address] Dilshad Muñoz MD [address] [place] [address] [place] [address] 06/01/2025 2:30 PM AS400 PROGRAMMER Appointment [facility] [address] [place] [address] Jefe Hernandez MD [address] [place] [address] LEVEL DOOR 3 [place] [address] 06/01/2025 3:45 PM AS400 PROGRAMMER Office Visit [facility] [address] [facility], [place] [address] Jefe Hernandez MD [address] [place] [address] DOOR 3 [place] [address] documented as of this encounter Visit Diagnoses Not on filedocumented in this encounter Care Teams Threader Operator Relationship Specialty Start Date End Date Dilshad Muñoz MD PCP - General Family Medicine 04/23/20 05/07/25 Dilshad Muñoz MD [address] [place] [address] [address] [address] PCP - Attributed-[facility] EHP [facility] 11/16/22 Dea Scott MD [address] [place] [address] 2[place] [address] PCP - General Family Medicine 05/08/25 documented as of this encounter
--- OUTSIDE RECORDS SUMMARY | 2025-05-21 16:06 | XMS_ITS | Encounter Summary ---
Author Organization [facility] Address [address] [place] [address] Care Team Providers Care English Horn Player Name Role Phone Dilshad Muñoz MD Primary Care Provider [phone]- [phone] Dilshad Muñoz MD Unavailable Dea Scott MD Primary Care Provider Reason for Visit * Reason Onset Date Comments MEDICATION REFILL 06/10/2023 Encounter Details Date Type Department Care Team (Late st Contact Info) Description 06/10/2023 Refill [facility] - Family Medicine [address] [place] [address], [facility] [place] [phone] Dilshad Muñoz MD [address] [place] [address] [place] [address] MEDICATION REFILL Social History Tobacco Use Types Packs/Day Years Used Date Smoking Tobacco: Former Cigarettes Smokeless Tobacco: Never Comments:QUIT 4yrs ago. Alcohol Use Standard Drinks/Week Comments Yes 1.7 (1 standard drink = 0.6 oz p ure alcohol) occassionally PHQ-2 Answer Date Recorded PHQ2 TOTAL SCORE 0 11/25/2022 Comments No Sex and Gender Information Value Date Recorded Sex Assigned at Female 09/16/2021 9:54 PM RETREADER Legal Sex Female 5:10 PM CDT Gender Identity Female 09/16/2021 9:54 PM RETREADER Sexual Orientation Straight 09/16/2021 9: 54 PM RETREADER documented as of this encounter Functional Status [...] st Contact Info) Description 06/01/2025 11:00 AM RETREADER Office Visit [facility] - Family Medicine [address] [place] [address], [place] [address] Dilshad Muñoz MD [address] [place] [address] [place] [address] 06/01/2025 2:30 PM RETREADER Appointment [facility] [address] [place] [address] Jefe Hernandez MD [address] [place] [address] LEVEL DOOR 3 [place] [address] 06/01/2025 3:45 PM RETREADER Office Visit [facility] - [facility], [place] [address] Jefe Hernandez MD [facility] DOOR 3 [place] [address] documented as of this encounter Visit Diagnoses Diagnosis Attention deficit hyperactivity disorder (ADHD), combined type documented in this encounter Care Teams English Horn Player Relationship Specialty Start Date End Date Dilshad Muñoz MD PCP - General Family Medicine 04/23/20 05/07/25 Dilshad Muñoz MD [address] [place] [address] [address] [address] PCP - Attributed-[facility] 11/16/22 Dea Scott MD [address] [facility] 2[address] [place] [address] PCP - General Family Medicine 05/08/25 documented as of this encounter
--- OUTSIDE RECORDS SUMMARY | 2025-05-21 16:06 | XMS_ITS | Encounter Summary ---
Author Organization [facility] Address [address] [place] [address] Care Team Providers Care Face Man Name Role Phone Dilshad Muñoz MD Primary Care Provider [phone]- [phone] Dilshad Muñoz MD Unavailable Dea Scott MD Primary Care Provider Reason for Visit * Reason Onset Date Comments MEDICATION REFILL 06/17/2023 Encounter Details Date Type Department Care Team (Late st Contact Info) Description 06/17/2023 Refill [facility] - Family Medicine [address] [place] [address], [facility] [place] [address] Dilshad Muñoz MD [address] [place] [address] [place] [address] MEDICATION REFILL Social History Tobacco Use Types Packs/Day Years Used Date Smoking Tobacco: Former Cigarettes Smokeless Tobacco: Never Comments:QUIT 4yrs ago. Alcohol Use Standard Drinks/Week Comments Yes 1.7 (1 standard drink = 0.6 oz p ure alcohol) occassionally PHQ-2 Answer Date Recorded PHQ2 TOTAL SCORE 0 11/25/2022 Comments No Sex and Gender Information Value Date Recorded Sex Assigned at Female 09/16/2021 9:54 PM CLOSING SUPERVISOR Legal Sex Female 5:10 PM CDT Gender Identity Female 09/16/2021 9:54 PM CLOSING SUPERVISOR Sexual Orientation Straight 09/16/2021 9: 54 PM CLOSING SUPERVISOR documented as of this encounter Functional [...] st Contact Info) Description 06/01/2025 11:00 AM CLOSING SUPERVISOR [facility] [address] [place] [address], [place] [address] Dilshad Muñoz MD [address] [place] [address] [place] [address] 06/01/2025 2:30 PM CLOSING SUPERVISOR Appointment [facility] [address] [place] [address] Jefe Hernandez MD [address] [place] [address] LEVEL DOOR 3 [place] [address] 06/01/2025 3:45 PM CLOSING SUPERVISOR Office Visit [facility] - ENT [facility], [place] [address] Jefe Hernandez MD [facility] DOOR 3 [place] [address] documented as of this encounter Visit Diagnoses Diagnosis Attention deficit hyperactivity disorder (ADHD), combined type documented in this encounter Care Teams Face Man Relationship Specialty Start Date End Date Dilshad Muñoz MD PCP - General Family Medicine 04/23/20 05/07/25 Dilshad Muñoz MD [address] [place] [address] 2[place] [address] PCP - Attributed-[facility] 11/16/22 Dea Scott MD [address] [facility] 2[place] [address] PCP - General Family Medicine 05/08/25 documented as of this encounter
--- OUTSIDE RECORDS SUMMARY | 2025-05-21 16:06 | XMS_ITS | Encounter Summary ---
Author Organization [facility] Address [address] [facility] [place] [address] Care Team Providers Care Natural Sciences Professor Name Role Phone Dilshad Muñoz MD Primary Care Provider [phone] Dilshad Muñoz MD Unavailable [phone] Dea Scott MD Primary Care Provider [phone] Reason for Visit * Reason Comments Refill Request Encounter Details Date Type Department Care Team (Late st Contact Info) Description 05/15/2024 Refill [facility] - Dermatology [address] [place] [address] [place] [address] Flaquita Hernandez MD [address] [place] [address] [place] [address] Refill Request Social History Tobacco Use Types [...] Sex Assigned at Female 09/16/2021 9:54 PM PROPERTY UTILIZATION MANAGER Legal Sex Female 5:10 PM CDT Gender Identity Female 09/16/2021 9:54 PM PROPERTY UTILIZATION MANAGER Sexual Orientation Straight 09/16/2021 9: 54 PM PROPERTY UTILIZATION MANAGER documented as of this encounter Functional [...] Date Type Department Care Team (Late st [facility] Info) Description 06/01/2025 11:00 AM PROPERTY UTILIZATION MANAGER Office Visit [facility] - Family Medicine [address] [place] [address] Dilshad Muñoz MD [address] [place] [address] [place] [address] 06/01/2025 2:30 PM PROPERTY UTILIZATION MANAGER Appointment [facility] [address] [place] [address] Jefe Hernandez MD [address] [place] [address] 3 [place] [address] 06/01/2025 3:45 PM PROPERTY UTILIZATION MANAGER Office Visit [facility] - ENT [address] [place] [address] Jefe Hernandez MD [address] [place] LEVEL DOOR 3 [place] [address] documented as of this encounter Visit Diagnoses Not on filedocumented in this encounter Care Teams Natural Sciences Professor Relationship Specialty Start Date End Date Dilshad Muñoz MD PCP - General Family Medicine 04/23/20 05/07/25 Dilshad Muñoz MD [address] [place] [address] PCP - Attributed-[facility] 11/16/22 Dea Scott MD [address] [facility] 2[address] [place] [address] PCP - General Family Medicine 05/08/25 documented as of this encounter
--- OUTSIDE RECORDS SUMMARY | 2025-05-21 16:06 | XMS_ITS | Clinical Summary ---
Author Organization [facility] Address [address] [place] [address] Phone Care Team Providers Care Wellness Nurse Rn Name Role Phone Landen Vickers Primary Care Provider [phone] Medications Budesonide-Formo terol Fumarate (SYMBICORT IN) take by inhalation . Active Albuterol Sulfate (PROAIR HFA IN) take by inhalation . Active Active Problems No known active problems Social History Tobacco Use Types Packs/Day Years Used Date Smoking Tobacco: Never Assessed Comments Unknown Sex and Gender Information Value Date Recorded Sex Assigned at Not on file Legal Sex Female 8:05 PM CDT Gender Identity Not on file Sexual Orientation Not on file Plan of Treatment Health Maintenance Due Date Last Done Comments Hepatitis C Virus (HCV) Screening 1973 TdaP Immunization 1973 Hepatitis B Immunization (1 of 3 - 19+ 3-dose series) 1992 Pap Smear 1994 Cervical Cancer Screening (CCS) 2003 HPV/Cotest 2003 Cologuard 2018 Colonoscopy 2018 Colorectal Cancer Screening 2018 Immunochemical Fecal Occult Blood 2018 Pneumococcal Immunization (5 0+ years) (1 of 1 - PCV) 2023 Zoster Immunization (1 of 2) 2023 Influenza Immunization (#1) 2025 04/03/2019 SARS-COV-2 Immunization (3 - 2024- season) 2025 09/27/2020, 09/06/2020 Respiratory Syncytial Virus (RSV) Immunization (Adult) (1 - 1-dose 75+ series) 2048 Human Papillomavirus (HPV) Immunization Aged Out No longer eligible b ased on patient's age to complete this topic Meningococcal Immunization (ACWY) Aged Out No longer eligible b ased on patient's age to complete this topic Rotavirus Immunization Aged Out No lo nger eligible based on patient's age to complete this topic Care Teams Wellness Nurse Rn Relationship Specialty Start Date End Date Landen Vickers PAC [address] [address] PCP - General Family Medicine 04/09/20
--- OUTSIDE RECORDS SUMMARY | 2025-05-21 16:06 | XMS_ITS | Encounter Summary ---
Author Organization [facility] Address [address] [facility] [place] [address] Care Team Providers Care Hydro Sprayer Operator Name Role Phone Dilshad Muñoz MD Primary Care Provider [phone] Dilshad Muñoz MD Unavailable [phone] Dea Scott MD Primary Care Provider [phone] Reason for Visit * Reason Onset Date Comments MEDICATION REFILL 02/21/2024 Encounter Details Date Type Department Care Team (Late st Contact Info) Description 02/21/2024 Refill [facility] - Family Medicine [address] [place] [address], [place] [phone] Dilshad Muñoz MD [address] [place] [address] [place] [address] MEDICATION REFILL Social History Tobacco Use Types [...] Sex Assigned at Female 09/16/2021 9:54 PM HORSE BUYER Legal Sex Female 5:10 PM CDT Gender Identity Female 09/16/2021 9:54 PM HORSE BUYER Sexual Orientation Straight 09/16/2021 9: 54 PM HORSE BUYER documented as of this encounter Functional Status [...] st Contact Info) Description 06/01/2025 11:00 AM HORSE BUYER Office Visit [facility] - Family Medicine [address] [place] [address], [place] [address] Dilshad Muñoz MD [address] [place] [address] [place] [address] 06/01/2025 2:30 PM HORSE BUYER Appointment [facility] [address] [place] [address] Jefe Hernandez MD [address] [place] [address] LEVEL DOOR 3 [place] [address] 06/01/2025 3:45 PM HORSE BUYER Office Visit [facility] - ENT [address] [facility], [place] [address] Jefe Hernandez MD [address] [place] [address] DOOR 3 [place] [address] documented as of this encounter Visit Diagnoses Diagnosis Attention deficit hyperactivity disorder (ADHD), combined type documented in this encounter Care Teams Hydro Sprayer Operator Relationship Specialty Start Date End Date Dilshad Muñoz MD PCP - General Family Medicine 04/23/20 05/07/25 Dilshad Muñoz MD [address] [facility] 2[address] [place] [address] PCP - Attributed-[facility] 11/16/22 Dea Scott MD [address] [facility] 2[place] [address] PCP - General Family Medicine 05/08/25 documented as of this encounter
--- OUTSIDE RECORDS SUMMARY | 2025-05-21 16:06 | XMS_ITS | Encounter Summary ---
Author Organization [facility] Address [address] [facility] [place] [address] Care Team Providers Care Drum Carrier Name Role Phone Dilshad Muñoz MD Primary Care Provider [phone] Dilshad Muñoz MD Unavailable [phone] Dea Scott MD Primary Care Provider [phone] Reason for Visit * Reason Comments Refill Request Encounter Details Date Type Department Care Team (Late st Contact Info) Description 04/24/2024 Refill [facility] - Dermatology [address] [place] [address] [place] [address] Flaquita Hernandez MD [address] [place] [address] [place] [address] Refill Request Social History Tobacco Use Types [...] Sex Assigned at Female 09/16/2021 9:54 PM COREMAKER FLOOR Legal Sex Female 5:10 PM CDT Gender Identity Female 09/16/2021 9:54 PM COREMAKER FLOOR Sexual Orientation Straight 09/16/2021 9: 54 PM COREMAKER FLOOR documented as of this encounter Functional Status [...] Date Type Department Care Team (Late st [facility] Info) Description 06/01/2025 11:00 AM COREMAKER FLOOR Office Visit [facility] - Family Medicine [address] [place] [address] Dilshad Muñoz MD [address] [place] [address] [place] [address] 06/01/2025 2:30 PM COREMAKER FLOOR Appointment [facility] [address] [place] [address] Jefe Hernandez MD [address] [place] [address] 3 [place] [address] 06/01/2025 3:45 PM COREMAKER FLOOR Office Visit [facility] - ENT [address] [place] [address] Jefe Hernandez MD [address] [place] LEVEL DOOR 3 [place] [address] documented as of this encounter Visit Diagnoses Not on filedocumented in this encounter Care Teams Drum Carrier Relationship Specialty Start Date End Date Dilshad Muñoz MD PCP - General Family Medicine 04/23/20 05/07/25 Dilshad Muñoz MD [address] [place] [address] PCP - Attributed-[facility] 11/16/22 Dea Scott MD [address] [facility] 2L [place] [address] PCP - General Family Medicine 05/08/25 documented as of this encounter
--- OUTSIDE RECORDS SUMMARY | 2025-05-21 16:06 | XMS_ITS | Encounter Summary ---
Author Organization [facility] Address [address] [facility] [place] [address] Care Team Providers Care Guidance Services Coordinator Name Role Phone Dilshad Muñoz MD Primary Care Provider [phone] Dilshad Muñoz MD Unavailable [phone] Dea Scott MD Primary Care Provider Reason for Visit * Reason Onset Date Comments MEDICATION REFILL 04/17/2022 Encounter Details Date Type Department Care Team (Late st Contact Info) Description 04/17/2022 Refill [facility] [address] [place] [phone] Dilshad Muñoz MD [address] [place] [address] [place] [address] MEDICATION REFILL Social History Tobacco Use Types Packs/Day Years Used Date Smoking Tobacco: Former Cigarettes Smokeless Tobacco: Never Comments:QUIT 4yrs ago. Alcohol Use Standard Drinks/Week Comments Yes 1.7 (1 standard drink = 0.6 oz p ure alcohol) occassionally PHQ-2 Answer Date Recorded PHQ2 TOTAL SCORE 6 01/07/2021 Comments No Sex and Gender Information Value Date Recorded Sex Assigned at Female 09/16/2021 9:54 PM OFFAL TRIMMER Legal Sex Female 5:10 PM CDT Gender Identity Female 09/16/2021 9:54 PM OFFAL TRIMMER Sexual Orientation Straight 09/16/2021 9: 54 PM OFFAL TRIMMER documented as of this encounter Functional Status [...] st Contact Info) Description 06/01/2025 11:00 AM OFFAL TRIMMER [facility] [address] [place] [address], [place] [address] Dilshad Muñoz MD [address] [place] [address] [place] [address] 06/01/2025 2:30 PM OFFAL TRIMMER Appointment [facility] [address] [place] [address] Jefe Hernandez MD [address] [place] [address] LEVEL DOOR 3 [place] [address] 06/01/2025 3:45 PM OFFAL TRIMMER Office Visit [facility] - ENT [address] [facility], [place] [address] Jefe Hernandez MD [address] [place] [address] DOOR 3 [place] [address] documented as of this encounter Visit Diagnoses Not on filedocumented in this encounter Care Teams Guidance Services Coordinator Relationship Specialty Start Date End Date Dilshad Muñoz MD PCP - General Family Medicine 04/23/20 05/07/25 Dilshad Muñoz MD [address] [place] [address] 2[place] [address] PCP - Attributed-[facility] 11/16/22 Dea Scott MD [address] [place] [address] 2[place] [address] PCP - General Family Medicine 05/08/25 documented as of this encounter
== END 2025-05-21 16:53 | disposition home or self-care (01) ==
PROVIDERS: Emergency Provider Nurse Practitioner
DX: J40 Bronchitis, not specified as acute or chronic (principal); J45.909 Unspecified asthma, uncomplicated; Z87.891 Personal history of nicotine dependence; K21.9 Gastro-esophageal reflux disease without esophagitis; F90.9 Attention-deficit hyperactivity disorder, unspecified type; Z98.84 Bariatric surgery status
CPT/HCPCS: 99213; G0463